=== PATIENT | female | born 1960 | race Caucasian/White ===

== ENCOUNTER → 2017-05-06 10:06 | Outpatient (CLI) | payer BC, SELFPAY ==
--- NOTE | 2017-05-06 10:25 | RAD_ITS ---
STUDY: X-RAY - PELVIS REASON FOR EXAM: Female, 56 years old. History of a inflammatory polyarthritis. TECHNIQUE: One view of the pelvis was obtained. COMPARISON: None. FINDINGS: There is a non-specific bowel gas pattern. There are multiple calcified phleboliths. Evidence of prior bilateral tubal ligation. There is a 1.2 cm calcification in the right mid abdomen. This may represent a lower pole calyceal calculus. Clinical correlation is recommended. Normal bilateral iliac wings, sacroiliac joints and visualized sacrum. Normal visualized bilateral superior and inferior pubic rami. Normal pubic symphysis. Normal ischial tuberosities. Normal visualized right femoral head. Normal right acetabulum. Normal right hip joint. Normal visualized left femoral head. Normal left acetabulum. Normal left hip joint. RAD/Pelvis 1 or 2 Views IMPRESSION: Normal x-ray examination of the pelvis. 1.2 cm calcification in the right midabdomen. Electronically Signed: Anup Jeffers MD at 11:01 EST Tel [phone], Service support ,
[2017-05-06 12:12] LABS: Absolute Lymphocyte Count 1.57 X10^3/ul (0.83-4.51); Basophil% 1.2 % (0-1); Eosinophil# 0.43 X10^3/uL; Eosinophils% 5.3 % (0-5); Hematocrit 39.5 % (37-47); Hemoglobin 13.2 g/dl (12.0-15.0); Lymphocyte # 1.57 X10^3/ul (4.0); Lymphocyte % 19.5 % (19-41); Mean Corp Hgb Conc 33.4 g/gl (32-36); Mean Corpuscular Hgb 34.7 pg (27.0-32.0); Mean Corpuscular Volume 103.9 fL (81-99); Mean Platelet Vol. 10.8 fl (6.2-12.0); Monocyte# 0.95 X10^3/uL; Monocyte% 11.8 % (0-10); Neutrophil # 4.98 X10^3/uL (2.7-7.7); Neutrophil % 61.8 % (47-70); Platelet Count 439 K/mm3 (150-450); RBC Distribution Width CV 13.1 % (11.6-14.6); RBC Distribution Width SD 48.9 fl (35.1-43.9); White Blood Count 8.1 K/mm3 (4.4-11.0)
[2017-05-06 12:13] LABS: POSITIVE COUNT NO; POSITIVE DIFFERENTIAL NO; POSITIVE MORPHOLOGY NO
[2017-05-06 12:14] LABS: Erythrocyte Sedimentation Rate 13 mm/hr (0-30)
[2017-05-06 12:20] LABS: ALB/GLOB Ratio 1.1 RATIO (0.9-2.4); AST(SGOT) 28 U/L (15-37); Alanine Aminotransfer ALT/SGPT 30 U/L (13-56); Albumin, Serum 4.3 g/dL (3.2-5.0); Alkaline Phosphatase 143 U/L (45-117); Anion Gap 13 (5-15); BUN 37 mg/dL (7-18); BUN/Creat Ratio 23.7 RATIO (10-20); CRP < 2.90 mg/L (0.0-3.0); Calcium,Total 10.2 mg/dL (8.5-10.1); Chloride 104 mmol/L (98-107); Creatinine, Serum 1.56 mg/dL (0.55-1.02); EST Glomerular Filtration Rate 36 mL/min (>60); Est Glom Filt Rate - Afr Amer 44 mL/min (>60); Glucose 89 mg/dL (70-110); Potassium 3.8 mmol/L (3.5-5.1); Protein, Total 8.3 g/dL (6.4-8.2); Rheumatoid Factor < 10.0 IU/mL (<15); Sodium Level 138 mmol/L (136-145); Uric Acid 2.3 mg/dL (2.6-6.0)
[2017-05-07 14:13] LABS: ANTINUCLEAR ANTIBODIES DIRECT Negative (Negative)
[2017-05-11 14:41] LABS: CCP IgG Antibodies 4 units (0-19); HEPATITIS B SURFACE AG Negative (Negative); HLA B27 Negative (.); Hep B Surface Antibodies Non Reactive (.); Hep C Antibodies <0.1 s/co ratio (0.0-0.9)
== END ==
PROVIDERS: Family Provider Family Medicine; PCP Family Medicine; Visit Provider Internal Medicine Rheumatology
DX: M06.4 Inflammatory polyarthropathy (principal); M79.7 Fibromyalgia; M10.9 Gout, unspecified; M19.071 Primary osteoarthritis, right ankle and foot; I10 Essential (primary) hypertension; E78.5 Hyperlipidemia, unspecified
CPT/HCPCS: 36415; 72170; 80053; 81374; 84550; 85025; 85652; 86038; 86140; 86200; 86431; 86706; 86803; 87340

== ENCOUNTER → 2017-07-01 08:40 | Outpatient (CLI) | payer BC, SELFPAY ==
[2017-07-01 09:14] LABS: Absolute Lymphocyte Count 2.14 X10^3/ul (0.83-4.51); Absolute Neutrophil Count 3.9 X10^3/uL (2.0-7.7); Basophil# 0.09 X10^3/uL; Basophil% 1.1 % (0-1); Eosinophils% 11.5 % (0-5); Hematocrit 40.7 % (37-47); Hemoglobin 13.4 g/dl (12.0-15.0); Lymphocyte # 2.14 X10^3/ul (4.0); Lymphocyte % 27.3 % (19-41); Mean Corp Hgb Conc 32.9 g/gl (32-36); Mean Corpuscular Hgb 34.3 pg (27.0-32.0); Mean Corpuscular Volume 104.1 fL (81-99); Monocyte# 0.76 X10^3/uL; Monocyte% 9.7 % (0-10); Neutrophil % 49.9 % (47-70); Platelet Count 399 K/mm3 (150-450); RBC Distribution Width CV 13.6 % (11.6-14.6); RBC Distribution Width SD 50.5 fl (35.1-43.9); Red Blood Count 3.91 M/mm3 (4.2-5.4); White Blood Count 7.8 K/mm3 (4.4-11.0)
[2017-07-01 09:16] LABS: POSITIVE COUNT NO; POSITIVE DIFFERENTIAL NO; POSITIVE MORPHOLOGY NO
[2017-07-01 09:47] LABS: ALB/GLOB Ratio 1.1 RATIO (0.9-2.4); AST(SGOT) 35 U/L (15-37); Alanine Aminotransfer ALT/SGPT 27 U/L (13-56); Albumin, Serum 4.1 g/dL (3.2-5.0); Alkaline Phosphatase 172 U/L (45-117); Anion Gap 11 (5-15); BUN 28 mg/dL (7-18); BUN/Creat Ratio 22.4 RATIO (10-20); Calcium,Total 10.2 mg/dL (8.5-10.1); Chloride 108 mmol/L (98-107); Creatinine, Serum 1.25 mg/dL (0.55-1.02); EST Glomerular Filtration Rate 47 mL/min (>60); Est Glom Filt Rate - Afr Amer 57 mL/min (>60); Globulin 3.9 g/dL (2.2-4.2); Glucose 84 mg/dL (74-106); Potassium 3.9 mmol/L (3.5-5.1); Sodium Level 139 mmol/L (136-145)
== END ==
PROVIDERS: Family Provider Family Medicine; PCP Family Medicine; Visit Provider Internal Medicine Rheumatology
DX: M06.4 Inflammatory polyarthropathy (principal); M79.7 Fibromyalgia; M19.071 Primary osteoarthritis, right ankle and foot; M10.9 Gout, unspecified; I10 Essential (primary) hypertension; E78.5 Hyperlipidemia, unspecified
CPT/HCPCS: 36415; 80053; 85025

== ENCOUNTER → 2017-09-11 08:02 | Outpatient (CLI) | payer BC, SELFPAY ==
--- NOTE | 2017-09-11 08:02 | DT_ITS ---
This patient was seen during an EMR downtime September 07, 2017 - September 14, 2017. This patient may have a combination of paper and electronic documentation or all paper documentation. All documentation is viewable within the e-chart portion of [email or web address] for each patient visit.
[2017-09-11 09:47] LABS: Eosinophils% 6.7 % (0-5); Hematocrit 38.5 % (37-47); Hemoglobin 13.3 g/dl (12.0-15.0); Lymphocyte % 16.5 % (19-41); Mean Corp Hgb Conc 34.5 g/gl (32-36); Mean Corpuscular Hgb 34.7 pg (27.0-32.0); Mean Corpuscular Volume 100.5 fL (81-99); Mean Platelet Vol. 10.2 fl (6.2-12.0); Monocyte% 12.1 % (0-10); Neutrophil % 63.1 % (47-70); POSITIVE COUNT NO; POSITIVE DIFFERENTIAL NO; POSITIVE MORPHOLOGY NO; Platelet Count 423 K/mm3 (150-450); RBC Distribution Width CV 12.6 % (11.6-14.6); RBC Distribution Width SD 45.3 fl (35.1-43.9); Red Blood Count 3.83 M/mm3 (4.2-5.4); White Blood Count 8.9 K/mm3 (4.4-11.0)
[2017-09-11 09:48] LABS: Absolute Lymphocyte Count 1.46 X10^3/ul (0.83-4.51); Absolute Neutrophil Count 5.6 X10^3/uL (2.0-7.7); Basophil# 0.09 X10^3/uL; Eosinophil# 0.59 X10^3/uL; Lymphocyte # 1.46 X10^3/ul (4.0); Monocyte# 1.07 X10^3/uL
[2017-09-11 14:52] LABS: AST(SGOT) 37 U/L (15-37); Alanine Aminotransfer ALT/SGPT 29 U/L (13-56); Albumin, Serum 4.2 g/dL (3.2-5.0); Alkaline Phosphatase 193 U/L (45-117); BUN 55 mg/dL (7-18); BUN/Creat Ratio 25.8 RATIO (10-20); Calcium,Total 11.9 mg/dL (8.5-10.1); Chloride 104 mmol/L (98-107); Creatinine, Serum 2.13 mg/dL (0.55-1.02); EST Glomerular Filtration Rate 25 mL/min (>60); Est Glom Filt Rate - Afr Amer 30 mL/min (>60); Globulin 4.4 g/dL (2.2-4.2); Glucose 98 mg/dL (74-106); Protein, Total 8.6 g/dL (6.4-8.2); Sodium Level 138 mmol/L (136-145)
[2017-09-11 14:53] LABS: Anion Gap 14 (5-15)
== END ==
PROVIDERS: Family Provider Family Medicine; PCP Family Medicine; Visit Provider Internal Medicine Rheumatology
DX: M06.4 Inflammatory polyarthropathy (principal); M19.071 Primary osteoarthritis, right ankle and foot; M79.7 Fibromyalgia; M10.9 Gout, unspecified; I10 Essential (primary) hypertension; E78.5 Hyperlipidemia, unspecified
CPT/HCPCS: 36415; 80053; 85025

== ENCOUNTER → 2017-10-02 06:50 | Outpatient (CLI) | payer BC, SELFPAY ==
[2017-10-02 07:30] LABS: ALB/GLOB Ratio 1.1 RATIO (0.9-2.4); AST(SGOT) 34 U/L (15-37); Alanine Aminotransfer ALT/SGPT 29 U/L (13-56); Alkaline Phosphatase 175 U/L (45-117); Anion Gap 11 (5-15); BUN 22 mg/dL (7-18); BUN/Creat Ratio 16.7 RATIO (10-20); Calcium,Total 8.9 mg/dL (8.5-10.1); Chloride 113 mmol/L (98-107); Creatinine, Serum 1.32 mg/dL (0.55-1.02); EST Glomerular Filtration Rate 44 mL/min (>60); Est Glom Filt Rate - Afr Amer 53 mL/min (>60); Globulin 3.8 g/dL (2.2-4.2); Glucose 90 mg/dL (74-106); Potassium 4.5 mmol/L (3.5-5.1); Protein, Total 7.8 g/dL (6.4-8.2); Sodium Level 143 mmol/L (136-145)
== END ==
PROVIDERS: Family Provider Family Medicine; PCP Family Medicine; Visit Provider Internal Medicine Rheumatology
DX: M06.4 Inflammatory polyarthropathy (principal); M79.7 Fibromyalgia; M19.071 Primary osteoarthritis, right ankle and foot; M10.9 Gout, unspecified; I10 Essential (primary) hypertension; E78.5 Hyperlipidemia, unspecified
CPT/HCPCS: 36415; 80053

== ENCOUNTER → 2018-01-01 06:43 | Outpatient (CLI) | payer BC, SELFPAY ==
[2018-01-01 07:24] LABS: Absolute Lymphocyte Count 1.37 X10^3/ul (0.83-4.51); Absolute Neutrophil Count 4.1 X10^3/uL (2.0-7.7); Basophil# 0.08 X10^3/uL; Basophil% 1.2 % (0-1); Eosinophil# 0.64 X10^3/uL; Eosinophils% 9.2 % (0-5); Hematocrit 39.7 % (37-47); Hemoglobin 13.6 g/dl (12.0-15.0); Lymphocyte # 1.37 X10^3/ul (4.0); Lymphocyte % 19.8 % (19-41); Mean Corp Hgb Conc 34.3 g/gl (32-36); Mean Corpuscular Hgb 34.8 pg (27.0-32.0); Mean Corpuscular Volume 101.5 fL (81-99); Mean Platelet Vol. 10.3 fl (6.2-12.0); Monocyte# 0.67 X10^3/uL; Monocyte% 9.7 % (0-10); Neutrophil # 4.12 X10^3/uL (2.7-7.7); Neutrophil % 59.4 % (47-70); Platelet Count 349 K/mm3 (150-450); RBC Distribution Width CV 13.5 % (11.6-14.6); RBC Distribution Width SD 48.4 fl (35.1-43.9); Red Blood Count 3.91 M/mm3 (4.2-5.4); White Blood Count 6.9 K/mm3 (4.4-11.0)
[2018-01-01 07:26] LABS: POSITIVE COUNT NO; POSITIVE DIFFERENTIAL NO; POSITIVE MORPHOLOGY NO
[2018-01-01 07:41] LABS: AST(SGOT) 25 U/L (15-37); Alanine Aminotransfer ALT/SGPT 19 U/L (13-56); Albumin, Serum 3.8 g/dL (3.2-5.0); Alkaline Phosphatase 166 U/L (45-117); Anion Gap 11 (5-15); BUN 18 mg/dL (7-18); BUN/Creat Ratio 16.4 RATIO (10-20); Calcium,Total 7.4 mg/dL (8.5-10.1); Chloride 111 mmol/L (98-107); EST Glomerular Filtration Rate 54 mL/min (>60); Est Glom Filt Rate - Afr Amer 66 mL/min (>60); Globulin 3.9 g/dL (2.2-4.2); Glucose 79 mg/dL (74-106); Potassium 3.5 mmol/L (3.5-5.1); Protein, Total 7.7 g/dL (6.4-8.2); Sodium Level 140 mmol/L (136-145)
== END ==
PROVIDERS: Family Provider Family Medicine; PCP Family Medicine; Referring Provider Internal Medicine Rheumatology; Visit Provider Internal Medicine Rheumatology
DX: M06.4 Inflammatory polyarthropathy (principal); M79.7 Fibromyalgia; M19.071 Primary osteoarthritis, right ankle and foot; M10.9 Gout, unspecified; I10 Essential (primary) hypertension; E78.5 Hyperlipidemia, unspecified
CPT/HCPCS: 36415; 80053; 85025

== ENCOUNTER → 2018-05-05 09:54 | Outpatient (CLI) | payer BC, SELFPAY ==
[2018-05-05 12:10] LABS: Absolute Lymphocyte Count 1.52 X10^3/ul (0.83-4.51); Absolute Neutrophil Count 3.7 X10^3/uL (2.0-7.7); Basophil# 0.07 X10^3/uL; Eosinophil# 0.71 X10^3/uL; Eosinophils% 10.5 % (0-5); Hemoglobin 13.3 g/dl (12.0-15.0); Lymphocyte # 1.52 X10^3/ul (4.0); Lymphocyte % 22.5 % (19-41); Mean Corp Hgb Conc 32.4 g/gl (32-36); Mean Corpuscular Hgb 35.6 pg (27.0-32.0); Mean Corpuscular Volume 109.6 fL (81-99); Mean Platelet Vol. 10.2 fl (6.2-12.0); Monocyte# 0.72 X10^3/uL; Monocyte% 10.7 % (0-10); Neutrophil % 54.9 % (47-70); Platelet Count 345 K/mm3 (150-450); Red Blood Count 3.74 M/mm3 (4.2-5.4); White Blood Count 6.8 K/mm3 (4.4-11.0)
[2018-05-05 12:15] LABS: POSITIVE COUNT NO; POSITIVE DIFFERENTIAL NO; POSITIVE MORPHOLOGY NO
[2018-05-05 12:24] LABS: ALB/GLOB Ratio 1.2 RATIO (0.9-2.4); AST(SGOT) 35 U/L (15-37); Alanine Aminotransfer ALT/SGPT 23 U/L (13-56); Albumin, Serum 3.8 g/dL (3.2-5.0); Alkaline Phosphatase 164 U/L (45-117); Anion Gap 11 (5-15); BUN 18 mg/dL (7-18); BUN/Creat Ratio 15.7 RATIO (10-20); Calcium,Total 8.9 mg/dL (8.5-10.1); Chloride 108 mmol/L (98-107); Cholesterol 175 mg/dL (200); Creatinine, Serum 1.15 mg/dL (0.55-1.02); EST Glomerular Filtration Rate 51 mL/min (>60); Est Glom Filt Rate - Afr Amer 62 mL/min (>60); Globulin 3.3 g/dL (2.2-4.2); Glucose 79 mg/dL (74-106); High Density Lipoprotein 91 mg/dL; Potassium 5.3 mmol/L (3.5-5.1); Protein, Total 7.1 g/dL (6.4-8.2); Sodium Level 143 mmol/L (136-145); Triglycerides 119 mg/dL; Very Low Density Lipoprotein 24 mg/dL (5-40)
== END ==
PROVIDERS: Family Provider Family Medicine; PCP Family Medicine; Visit Provider Family Medicine
DX: M06.4 Inflammatory polyarthropathy (principal); M79.7 Fibromyalgia; M19.071 Primary osteoarthritis, right ankle and foot; M10.9 Gout, unspecified; I10 Essential (primary) hypertension; E78.5 Hyperlipidemia, unspecified
CPT/HCPCS: 36415; 80053; 80061; 85025

== ENCOUNTER → 2018-11-09 14:05 | Outpatient (CLI) | payer BC, SELFPAY | PROVIDERS: Family Provider Family Medicine; PCP Family Medicine; Referring Provider Family Medicine; Visit Provider Family Medicine | DX: R19.7 Diarrhea, unspecified (principal) | CPT/HCPCS: 87493; 87506 ==

== ENCOUNTER → 2019-08-05 07:01 | Outpatient (CLI) | payer BC, SELFPAY ==
[2019-08-05 10:35] LABS: Anion Gap 9 (5-15); BUN 17 mg/dL (7-18); BUN/Creat Ratio 15.9 RATIO (10-20); Calcium,Total 9.2 mg/dL (8.5-10.1); Chloride 113 mmol/L (98-107); Cholesterol 211 mg/dL (200); Creatinine, Serum 1.07 mg/dL (0.55-1.02); EST Glomerular Filtration Rate 56 mL/min (>60); Est Glom Filt Rate - Afr Amer 67 mL/min (>60); Glucose 107 mg/dL (74-106); High Density Lipoprotein 76 mg/dL; Potassium 3.8 mmol/L (3.5-5.1); Sodium Level 140 mmol/L (136-145); Triglycerides 186 mg/dL; Very Low Density Lipoprotein 37 mg/dL (5-40)
== END ==
PROVIDERS: PCP Family Medicine; Referring Provider Family Medicine; Visit Provider Family Medicine
DX: I10 Essential (primary) hypertension (principal)
CPT/HCPCS: 36415; 80048; 80061

== ENCOUNTER → 2020-06-01 07:02 | Outpatient (CLI) | payer BC, SELFPAY ==
[2020-06-01 10:54] LABS: Anion Gap 10 (5-15); BUN 18 mg/dL (7-18); BUN/Creat Ratio 13.3 RATIO (10-20); Calcium,Total 10.4 mg/dL (8.5-10.1); Chloride 105 mmol/L (98-107); Cholesterol 204 mg/dL (200); Creatinine, Serum 1.35 mg/dL (0.55-1.02); EST Glomerular Filtration Rate 42 mL/min (>60); Est Glom Filt Rate - Afr Amer 51 mL/min (>60); Glucose 96 mg/dL (74-106); High Density Lipoprotein 95 mg/dL; Sodium Level 136 mmol/L (136-145); Triglycerides 103 mg/dL; Very Low Density Lipoprotein 21 mg/dL (5-40)
== END ==
PROVIDERS: PCP Family Medicine; Referring Provider Family Medicine; Visit Provider Family Medicine
DX: I10 Essential (primary) hypertension (principal)
CPT/HCPCS: 36415; 80048; 80061

== ENCOUNTER → 2020-10-24 14:16 | Outpatient (CLI) | payer BC, SELFPAY ==
[2020-10-24 15:23] LABS: Absolute Lymphocyte Count 1.84 X10^3/uL (0.83-4.51); Absolute Neutrophil Count 6.5 X10^3/uL (2.0-7.7); Basophil# 0.08 X10^3/uL; Basophil% 0.8 % (0-1); Eosinophil# 0.73 X10^3/uL; Eosinophils% 7.3 % (0-5); Erythrocyte Sedimentation Rate 26 mm/hr (0-30); Hematocrit 36.8 % (37-47); Hemoglobin 12.3 g/dL (12.0-15.0); Lymphocyte # 1.84 X10^3/ul (0.83-4.51); Lymphocyte % 18.4 % (19-41); Mean Corp Hgb Conc 33.4 g/dL (32-36); Mean Corpuscular Hgb 35.4 pg (27.0-32.0); Mean Corpuscular Volume 106.1 fL (81-99); Mean Platelet Vol. 9.7 fl (6.2-12.0); Monocyte# 0.78 X10^3/uL; Monocyte% 7.8 % (0-10); NRBC Flagged by Analyzer 0 % (0-5); Neutrophil # 6.52 X10^3/uL (2.7-7.7); Neutrophil % 65.1 % (47-70); Platelet Count 459 K/mm3 (150-450); RBC Distribution Width CV 13.6 % (11.6-14.6); RBC Distribution Width SD 52.2 fl (35.1-43.9); Red Blood Count 3.47 M/mm3 (4.2-5.4)
[2020-10-24 15:34] LABS: Vitamin B12 460 pg/mL (211-911)
[2020-10-24 16:20] LABS: Ferritin 217 ng/mL (8-252); Iron 117 ug/dL (50-170)
[2020-10-25 11:18] LABS: Iron Binding Capacity,Total 399 ug/dL (250-450)
== END ==
PROVIDERS: PCP Family Medicine; Referring Provider Internal Medicine Infectious Disease; Visit Provider Internal Medicine Infectious Disease
DX: K12.0 Recurrent oral aphthae (principal)
CPT/HCPCS: 36415; 82607; 82728; 82746; 83540; 83550; 85025; 85652

== ENCOUNTER → 2021-01-25 11:56 | Outpatient (CLI) | payer BC, SELFPAY ==
[2021-01-25 15:22] LABS: Anion Gap 14 (5-15); BUN 59 mg/dL (7-18); BUN/Creat Ratio 30.4 RATIO (10-20); Calcium,Total 8.8 mg/dL (8.5-10.1); Chloride 112 mmol/L (98-107); Creatinine, Serum 1.94 mg/dL (0.55-1.02); EST Glomerular Filtration Rate 28 mL/min (>60); Est Glom Filt Rate - Afr Amer 34 mL/min (>60); Glucose 96 mg/dL (74-106); Potassium 5.1 mmol/L (3.5-5.1); Sodium Level 141 mmol/L (136-145)
== END ==
PROVIDERS: PCP Family Medicine; Referring Provider Family Medicine; Visit Provider Family Medicine
DX: R42 Dizziness and giddiness (principal)
CPT/HCPCS: 36415; 80048

== ENCOUNTER → 2021-01-31 08:55 | Outpatient (CLI) | payer BC, SELFPAY ==
[2021-01-31 10:30] LABS: Anion Gap 9 (5-15); BUN 26 mg/dL (7-18); BUN/Creat Ratio 21.5 RATIO (10-20); Chloride 116 mmol/L (98-107); Creatinine, Serum 1.21 mg/dL (0.55-1.02); EST Glomerular Filtration Rate 48 mL/min (>60); Est Glom Filt Rate - Afr Amer 58 mL/min (>60); Glucose 90 mg/dL (74-106); Sodium Level 144 mmol/L (136-145)
== END ==
PROVIDERS: PCP Family Medicine; Referring Provider Family Medicine; Visit Provider Family Medicine
DX: I10 Essential (primary) hypertension (principal)
CPT/HCPCS: 36415; 80048

== ENCOUNTER 2021-04-01 08:45 | Inpatient (IN) | payer BC, MEDICARE, SELFPAY ==
[2021-04-01] VITALS (22 sets, daily range): BP systolic 78–113; BP diastolic 57–77; PULSE 99–119; RESP 14–18; TEMP 36.1–37.1; O2SAT 15–95; BMI 30.9; BMI 32.5
--- NOTE | 2021-04-01 09:36 | CT_ITS ---
EXAM: CT ANGIOGRAPHY CHEST WITHOUT AND WITH INTRAVENOUS CONTRAST CLINICAL INDICATION: pulmonary embolism hypoxia TECHNIQUE: Helically acquired angiography images were obtained of the chest without and with intravenous contrast. This CT exam was performed using one or more of the following dose reduction techniques: automated exposure control, adjustment of the mA and/or kV according to patient size, and/or use of iterative reconstruction technique. This report was created using [employer] report generation technology. MIP reconstructed images were created and reviewed. CONTRAST: IV 100mL Isovue-370 COMPARISON: None. FINDINGS: PULMONARY ARTERIES: Unremarkable. Normal in caliber. No evidence of pulmonary embolism. AORTA: Unremarkable. Normal in caliber. No evidence of dissection. GREAT VESSELS OF AORTIC ARCH: Unremarkable. Normal in caliber. No evidence of dissection. LUNGS AND PLEURAL SPACES: Multifocal infiltrates with features commonly reported with COVID pneumonia. No mass. No pleural effusion or thickening. HEART: Coronary artery atherosclerosis. Heart size is normal. No pericardial effusion. No signs of right heart strain. MEDIASTINUM: Unremarkable. No mediastinal or hilar adenopathy. Esophagus is unremarkable. No hiatal hernia. THYROID: Unremarkable. No thyroid lesions. BONES/JOINTS: Unremarkable. No suspicious lytic or blastic abnormality. ADRENALS: Mixed density mass of the left adrenal gland measuring 2.6 x 2.9 cm with macroscopic fat component and calcification, likely representing a myelolipoma. ACR White Paper guidelines (Shahzad et al. JACR 2017; 14(8):3386-3659) suggest no follow-up is necessary. CT/CTA Chest W/WO Contrast IMPRESSION: Multifocal infiltrates with features commonly reported with COVID pneumonia. No central or segmental pulmonary embolism. Electronically Signed: Aaron Martinez MD ([place]) at 11:12 EST , Service support ,
--- NOTE | 2021-04-01 09:36 | EKG12_ITS ---
Test Reason : SOB Blood Pressure : / mmHG Vent. Rate : 108 BPM Atrial Rate : 108 BPM P-R Int : 180 ms QRS Dur : 066 ms QT Int : 348 ms P-R-T Axes : 047 -09 015 degrees QTc Int : 466 ms Sinus tachycardia Low voltage QRS Borderline ECG Confirmed by SERENA SHIRLEY MD ([id number]), staff editor JIMENA BARTH ([id number]) on 04/04/2021 9:06:05 AM Referred By: Confirmed By:SERENA SHIRLEY MD
--- NOTE | 2021-04-01 09:38 | EDS_ITS ---
HPI History of Present Illness Chief Complaint: Weakness Informant: patient Narrative Narrative: 60-year-old female presenting to the emergency room with hypoxemia. States about 2 weeks ago she had a common cold with some rhinorrhea. Her then contracted COVID-19 and then last Thursday she developed a cough and fatigue. notes that they have been monitoring her oxygen saturations and has been doing okay. On Thursday she began to have some dips into the 80s but using her inhalers she was able to get her to come back up into the 90s. Unfortunately today she was in the 70s. Patient denies any chest pain. She feels globally weak. She is vaccinated including booster. She does note an underlying history of COPD. 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 [facility] Medical History (Updated 04/01/21 @ 12:[address] Keron Burgess, DO) GERD (gastroesophageal reflux disease) HLD (hyperlipidemia) Hypertension IBS (irritable bowel syndrome) Plantar fasciitis of left foot Medical History no medical history Home Medications loratadine 10 mg PO DAILY 09/21/13 [History Last Taken Unknown] omeprazole 20 mg PO DAILY 09/21/13 [History Last Taken 10/31/16 06:30] calcium citrate-vitamin D3 315 mg PO BID 10/24/16 [History Last Taken Unknown] cholecalciferol (vitamin D3) 500 mg PO DAILY 10/24/16 [History Last Taken Unknown] fluticasone furoate-vilanterol 1 ea IH DAILY 10/24/16 [History Last Taken 10/31/16 06:30] gemfibrozil 600 mg PO BIDAC 10/24/16 [History Last Taken Unknown] magnesium 400 mg PO DAILY 10/24/16 [History Last Taken Unknown] multivitamin 1 ea PO DAILY 10/24/16 [History Last Taken Unknown] zolpidem 10 mg PO QHS 10/24/16 [History Last Taken Unknown] albuterol mcg INHALATION 04/01/21 [History Last Taken Unknown] allopurinol 300 mg PO BID 04/01/21 [History Last Taken Unknown] lisinopril 20 mg PO DAILY 04/01/21 [History Last Taken Unknown] nortriptyline 50 mg PO.IVFORM QHS 04/01/21 [History Last Taken Unknown] rosuvastatin [Crestor] 5 mg PO DAILY 04/01/21 [History Last Taken Unknown] zolpidem [Ambien] 10 mg PO QHS PRN 04/01/21 [History Last Taken Unknown] Allergy/AdvReac Type Severity Reaction Status Date / Time levofloxacin [From Levaquin] AdvReac Diarrhea Verified 03/28/17 09:45 Social History (Updated 04/01/21 @ 09:[address] Keron Burgess, DO) Smoking Status: Former smoker substance use type: does not use ROS ROS ED ROS Narrative Generalized fatigue Constitutional Constitutional ED: Reports chills; Denies fever(s) or weight loss Eyes Eyes: Denies change in vision or diplopia ENT ENT ED: Reports rhinorrhea and sore throat; Denies ear pain Cardiovascular Cardiovascular: Denies chest pain, orthopnea, palpitations or racing heartbeat Respiratory/Chest Respiratory/Chest: Reports cough, dyspnea and dyspnea on exertion; Denies orthopnea Gastrointestinal Gastrointestinal: Denies abdominal pain, diarrhea, nausea or vomiting Genitourinary Genitourinary ED: Denies dysuria, hematuria or urinary frequency Musculoskeletal Musculoskeletal: Reports myalgias; Denies arthralgias Integumentary Denies abscess or rash Neurologic Neurologic: Reports headache(s); Denies weakness Psychiatric Psychiatric: Denies anxiety, depression, suicidal ideation or suicidal thoughts Endocrine Endocrinology: Denies polydipsia, polyphagia or polyuria Allergic/Immunologic Allergic/Immunologic ED: Denies mouth swelling, tongue swelling or urticaria EXAM Physical Exam Const Vital Signs: 04/01/21 08:46 04/01/21 09:16 04/01/21 09:41 Temperature 96.9 F L Temperature Source Temporal Pulse Rate 119 H 115 H Respiratory Rate 16 15 Respiratory Effort Respiratory Pattern Blood Pressure 90/65 Blood Pressure Mean 73 Pulse Ox 80 90 15 Oxygen Delivery Method Room Air High Flow Nasal Cannula Oxygen Flow Rate (L/min) 15 04/01/21 09:57 04/01/21 10:48 04/01/21 11:07 Temperature Temperature Source Pulse Rate Respiratory Rate Respiratory Effort Labored Respiratory Pattern Tachypnea Blood Pressure 85/63 L 113/59 L Blood Pressure Mean 70 77 Pulse Ox Oxygen Delivery Method Oxygen Flow Rate (L/min) 04/01/21 11:25 04/01/21 11:30 Temperature 98.7 F Temperature Source Oral Pulse Rate 101 H Respiratory Rate 14 Respiratory Effort Respiratory Pattern Blood Pressure 81/57 L 83/63 L Blood Pressure Mean 65 69 Pulse Ox 94 Oxygen Delivery Method Airvo Oxygen Flow Rate (L/min) Positive well nourished and well developed General Appearance ED: well developed HEENT Reports normocephalic, head/scalp atraumatic, TM's clear and moist mucous membranes HEENT Narrative: Mild turbinate edema Negative for trauma Tympanic Membrane ED: Yes TM's clear Eyes PERRL and EOMs intact bilaterally Neck no lymphadenopathy, supple and no JVD Resp normal respiratory effort and clear to auscultation bilaterally Cardio regular rate and no murmurs Rate: tachycardic GI normal to inspection, nondistended, normoactive bowel sounds and non-tender Palpation: soft Back/Spine no CVA tenderness and normal ROM Extremity normal to inspection General Extremety ED: Negative for edema General Extremity: Negative for edema Neuro oriented x3 and CN's II-XII intact bilaterally Sensorium / Orientation: alert Motor Exam: strength 5/5 throughout Psych mental status grossly normal Mood & Affect: Negative for depressed or tearful Skin no rashes or lesions noted and no wounds MDM MDM MDM Narrative Medical decision making narrative: Patient CTA of the chest does not demonstrate any pulmonary embolism but does demonstrate areas of pneumonitis consistent with her COVID-19 diagnosis. CRP significantly elevated to 56 fibrinogen greater than 900 D-dimer 0.89. Lactic acid is normal at 1. Creatinine 1.37. The patient's blood pressure has been labile. All means greater than 65 some down into the 80s and then some more normotensive. Start with a 500 cc fluid bolus and advance slowly. Blood pressures are improving with the fluid bolus. She appears to be perfusing well and her lactic acid is normal. I will give her a dose of Decadron. Lab Data Attestation: I reviewed the patient's lab results. Labs: Laboratory Results - last 24 hr 04/01/21 04/01/21 04/01/21 09:25 09:25 09:25 WBC 8.1 RBC 3.53 L Hgb 12.4 Hct 35.8 L MCV 101.4 H MCH 35.1 H MCHC 34.6 RDW Std Deviation 49.2 H RDW Coeff of James 13.3 Plt Count 415 MPV 9.6 Immature Gran % (Auto) 1.000 H Neut % (Auto) 75.9 H Lymph % (Auto) 10.6 L [place] % (Auto) 11.6 H Eos % (Auto) 0.2 Baso % (Auto) 0.7 Absolute Neuts (auto) 6.1 Absolute Lymphs (auto) 0.86 Nucleated RBC % 0 Fibrinogen > 900 H D-Dimer Quant (PE/DVT) 0.89 H* Sodium 131 L Potassium 3.9 Chloride 103 Carbon Dioxide 13.0 L Anion Gap 15 BUN 21 H Creatinine 1.37 H Estim Creat Clear Calc 37.24 Est GFR (MDRD) Af Amer 50 L Est GFR (MDRD) Non-Af 42 L BUN/Creatinine Ratio 15.3 Glucose 105 Lactic Acid Calcium 8.9 Total Bilirubin 0.30 AST 46 H ALT 33 Alkaline Phosphatase 167 H Lactate Dehydrogenase 216 Total Creatine Kinase 45 Troponin I High Sens 8 C-React Prot Ext Range 256.00 H B-Natriuretic Peptide Total Protein 7.8 Albumin 2.8 L Globulin 5.0 H Albumin/Globulin Ratio 0.6 L Procalcitonin 04/01/21 04/01/21 04/01/21 09:25 09:25 09:25 WBC RBC Hgb Hct MCV MCH MCHC RDW Std Deviation RDW Coeff of James Plt Count MPV Immature Gran % (Auto) Neut % (Auto) Lymph % (Auto) [place] % (Auto) Eos % (Auto) Baso % (Auto) Absolute Neuts (auto) Absolute Lymphs (auto) Nucleated RBC % Fibrinogen D-Dimer Quant (PE/DVT) Sodium Potassium Chloride Carbon Dioxide Anion Gap BUN Creatinine Estim Creat Clear Calc Est GFR (MDRD) Af Amer Est GFR (MDRD) Non-Af BUN/Creatinine Ratio Glucose Lactic Acid 1.0 Calcium Total Bilirubin AST ALT Alkaline Phosphatase Lactate Dehydrogenase Total Creatine Kinase Troponin I High Sens C-React Prot Ext Range B-Natriuretic Peptide 36.3 Total Protein Albumin Globulin Albumin/Globulin Ratio Procalcitonin 0.71 H Radiography Diagnostic Testing: Clinical Impression(s) from Imaging Studies Chest CTA 04/01/21 09:36 IMPRESSION: Multifocal infiltrates with features commonly reported with COVID pneumonia. No central or segmental pulmonary embolism. Electronically Signed: Aaron Martinez MD ([place]) at 11:12 EST , Service support , EKG Initial EKG: Attestation: I personally reviewed and interpreted this EKG as follows: Comments: Sinus tachycardia with a ventricular rate of 108 bpm Discharge Plan Dx/Rx/DC Orders Clinical Impression: COVID-19, Acute hypoxemic respiratory failure due to COVID-19, Acute hypotension Disposition Disposition: Acute Care [facility]
[2021-04-01 10:06] LABS: Absolute Lymphocyte Count 0.86 X10^3/uL (0.83-4.51); Absolute Neutrophil Count 6.1 X10^3/uL (2.0-7.7); Basophil# 0.06 X10^3/uL; Basophil% 0.7 % (0-1); Eosinophil# 0.02 X10^3/uL; Eosinophils% 0.2 % (0-5); Hematocrit 35.8 % (37-47); Hemoglobin 12.4 g/dL (12.0-15.0); Lymphocyte # 0.86 X10^3/ul (0.83-4.51); Lymphocyte % 10.6 % (19-41); Mean Corp Hgb Conc 34.6 g/dL (32-36); Mean Corpuscular Hgb 35.1 pg (27.0-32.0); Mean Corpuscular Volume 101.4 fL (81-99); Mean Platelet Vol. 9.6 fl (6.2-12.0); Monocyte# 0.94 X10^3/uL; Monocyte% 11.6 % (0-10); NRBC Flagged by Analyzer 0 % (0-5); Neutrophil # 6.14 X10^3/uL (2.7-7.7); Neutrophil % 75.9 % (47-70); Platelet Count 415 K/mm3 (150-450); RBC Distribution Width CV 13.3 % (11.6-14.6); RBC Distribution Width SD 49.2 fl (35.1-43.9); Red Blood Count 3.53 M/mm3 (4.2-5.4); White Blood Count 8.1 K/mm3 (4.4-11.0)
[2021-04-01 10:10] LABS: Procalcitonin 0.71 ng/mL (0.00-0.09)
[2021-04-01 10:14] LABS: Fibrinogen > 900 mg/dl (203-444)
[2021-04-01 10:17] LABS: ALB/GLOB Ratio 0.6 RATIO (0.9-2.4); AST(SGOT) 46 U/L (15-37); Alanine Aminotransfer ALT/SGPT 33 U/L (13-56); Albumin, Serum 2.8 g/dL (3.2-5.0); Alkaline Phosphatase 167 U/L (45-117); Anion Gap 15 (5-15); BUN 21 mg/dL (7-18); BUN/Creat Ratio 15.3 RATIO (10-20); CPK Total, Creatine Kinase 45 U/L (26-192); Calcium,Total 8.9 mg/dL (8.5-10.1); Chloride 103 mmol/L (98-107); Creatinine, Serum 1.37 mg/dL (0.55-1.02); EST Glomerular Filtration Rate 42 mL/min (>60); Est Glom Filt Rate - Afr Amer 50 mL/min (>60); Estimated Creatinine Clearance 37.24 ml/min; Glucose 105 mg/dL (74-106); LDH 216 U/L (84-246); Potassium 3.9 mmol/L (3.5-5.1); Protein, Total 7.8 g/dL (6.4-8.2); Sodium Level 131 mmol/L (136-145); Troponin-I HS 8 pg/mL (3.0-54.0)
[2021-04-01 10:30] LABS: D-Dimer Quantitative (DVT/PE) 0.89 FEU/ug/m (0.27-0.49)
[2021-04-01 10:43] LABS: BNP,B-Type NATRIURETIC PEPTIDE 36.3 pg/mL (0-100)
[2021-04-01] MEDS: 0.9% Normal Saline 1,000 ML 999 ML IV ×2 (11:23→23:45)
--- NOTE | 2021-04-01 11:25 | PCM.HP.STD ---
HPI - General General Date of Admission: 04/01/21 HPI Narrative VAMSI MARCUS, is a 60 F with an extensive PMH as outlined who was admitted via the ED on with a complain of shortness of breath. Patient started having some cold like symptoms 2 weeks ago, and had associated rhinorrhea. She was subsequently exposed to covid 19 as her tested positive. She had been at home, supposedly doing well with her oxyen saturations which they had been monitoring. However, her shortness of breath worsened so she was brought in to the ED today. She has receied the vaccines and also the booster. VItals in the ED were IN of 101F, IN of 98.7F, RR of 14 and Pulse ox of 94% on Airvo a 45L of oxygen. CBC showed hemoglobin of 12.4 with platelets of 415 and WBC of 8.1. Chemistry was remarkable for sodium of 131 and creatinine of 1.37. CRP was elevated at 256 and fibrinogen was also elevated. CT of the chest was negative for PE; D-dimer was elevated. She is being admitted to be managed for acute hypoxic respiratory failure due to covid 19 pneumonia. [facility] Medical History GERD (gastroesophageal reflux disease) HLD (hyperlipidemia) Hypertension IBS (irritable bowel syndrome) Plantar fasciitis of left foot Medical History no medical history Home Medications loratadine 10 mg PO DAILY 09/21/13 [History Last Taken Unknown] omeprazole 20 mg PO DAILY 09/21/13 [History Last Taken 10/31/16 06:30] calcium citrate-vitamin D3 315 mg PO BID 10/24/16 [History Last Taken Unknown] cholecalciferol (vitamin D3) 500 mg PO DAILY 10/24/16 [History Last Taken Unknown] fluticasone furoate-vilanterol 1 ea IH DAILY 10/24/16 [History Last Taken 10/31/16 06:30] gemfibrozil 600 mg PO BIDAC 10/24/16 [History Last Taken Unknown] magnesium 400 mg PO DAILY 10/24/16 [History Last Taken Unknown] multivitamin 1 ea PO DAILY 10/24/16 [History Last Taken Unknown] zolpidem 10 mg PO QHS 10/24/16 [History Last Taken Unknown] albuterol mcg INHALATION 04/01/21 [History Last Taken Unknown] allopurinol 300 mg PO BID 04/01/21 [History Last Taken Unknown] lisinopril 20 mg PO DAILY 04/01/21 [History Last Taken Unknown] nortriptyline 50 mg PO.IVFORM QHS 04/01/21 [History Last Taken Unknown] rosuvastatin [Crestor] 5 mg PO DAILY 04/01/21 [History Last Taken Unknown] zolpidem [Ambien] 10 mg PO QHS PRN 04/01/21 [History Last Taken Unknown] Allergy/AdvReac Type Severity Reaction Status Date / Time [facility] [[facility]] AdvReac Diarrhea Verified 03/28/17 09:45 Social History (Updated 04/01/21 @ 09:[address] Keron Burgess, DO) Smoking Status: Former smoker substance use type: does not use ROS Constitutional Constitutional: Reports fatigue, malaise and weakness; Denies anorexia, change in weight, chills or fever(s) Eyes Eyes: Denies change in vision ENT HEENT: Denies ear pain or headache(s) Cardiovascular Cardiovascular: Reports dyspnea on exertion and orthopnea; Denies chest pain, edema, lightheadedness, palpitations, paroxysmal nocturnal dyspnea, rapid heart rate or syncope Respiratory/Chest Respiratory/Chest: Reports cough, dyspnea, hemoptysis, productive cough, shortness of breath at rest and shortness of breath with exertion; Denies excessive phlegm production or wheezing Gastrointestinal Gastrointestinal: Denies abdominal pain, constipation, diarrhea, nausea or vomiting Genitourinary Genitourinary: Denies burning urination, dysuria, hematuria or urinary frequency Musculoskeletal Musculoskeletal: Denies arthralgias, back pain, joint pain or joint swelling Neurologic Neurologic: Denies confusion, dizziness or focal weakness Psychiatric Psychiatric: Denies anxiety or depression Vital Signs Vital Signs Vital Signs: 04/01/21 08:46 04/01/21 09:16 04/01/21 09:41 Temperature 96.9 F L Temperature Source Temporal Pulse Rate 119 H 115 H Respiratory Rate 16 15 Respiratory Effort Respiratory Pattern Blood Pressure 90/65 Blood Pressure Mean 73 Pulse Ox 80 90 15 Oxygen Delivery Method Room Air High Flow Nasal Cannula Oxygen Flow Rate (L/min) 15 04/01/21 09:57 04/01/21 10:48 04/01/21 11:07 Temperature Temperature Source Pulse Rate Respiratory Rate Respiratory Effort Labored Respiratory Pattern Tachypnea Blood Pressure 85/63 L 113/59 L Blood Pressure Mean 70 77 Pulse Ox Oxygen Delivery Method Oxygen Flow Rate (L/min) Weight Weight: 180 lb Body Mass Index (BMI) 30.9 Physical Exam Const alert and oriented x3 General Appearance: cooperative Orientation / Consciousness: lethargic HEENT normocephalic, head/scalp atraumatic, hearing grossly normal bilaterally and moist oral mucous membranes Eyes PERRL, EOMs intact bilaterally and conjunctivae normal Neck no lymphadenopathy Resp Resp Narrative: diminished breath sounds bibasally, no wheezes, no crackles. on Airvo at 45L Cardio regular rate, regular rhythm, S1 normal heart sound, S2 normal heart sound and no murmurs GI normal to inspection, nondistended, normoactive bowel sounds, soft to palpation, non-tender and non-distended Extremity normal to inspection, full ROM and no clubbing, cyanosis or edema Peripheral Pulses: Yes pulses 2+ throughout Skin no rashes or lesions noted Neuro oriented x3, CN's II-XII intact bilaterally and moves all extremities Sensorium / Orientation: awake and alert Psych affect normal Results Lab / Micro Data Result Diagrams: 04/01/21 09:25 04/01/21 09:25 Labs: Laboratory Results - last 24 hr 04/01/21 09:25: WBC 8.1, RBC 3.53 L, Hgb 12.4, Hct 35.8 L, MCV 101.4 H, MCH 35.1 H, MCHC 34.6, RDW Std Deviation 49.2 H, RDW Coeff of James 13.3, Plt Count 415, MPV 9.6, Immature Gran % (Auto) 1.000 H, Neut % (Auto) 75.9 H, Lymph % (Auto) 10.6 L, [place] % (Auto) 11.6 H, Eos % (Auto) 0.2, Baso % (Auto) 0.7, Absolute Neuts (auto) 6.1, Absolute Lymphs (auto) 0.86, Nucleated RBC % 0 04/01/21 09:25: Fibrinogen > 900 H, D-Dimer Quant (PE/DVT) 0.89 H* 04/01/21 09:25: Sodium 131 L, Potassium 3.9, Chloride 103, Carbon Dioxide 13.0 L, Anion Gap 15, BUN 21 H, Creatinine 1.37 H, Estim Creat Clear Calc 37.24, Est GFR (MDRD) Af Amer 50 L, Est GFR (MDRD) Non-Af 42 L, BUN/Creatinine Ratio 15.3, Glucose 105, Calcium 8.9, Total Bilirubin 0.30, AST 46 H, ALT 33, Alkaline Phosphatase 167 H, Lactate Dehydrogenase 216, Total Creatine Kinase 45, Troponin I High Sens 8, C-React Prot Ext Range 256.00 H, Total Protein 7.8, Albumin 2.8 L, Globulin 5.0 H, Albumin/Globulin Ratio 0.6 L 04/01/21 09:25: Lactic Acid 1.0 04/01/21 09:25: B-Natriuretic Peptide 36.3 04/01/21 09:25: Procalcitonin 0.71 H Micro: Microbiology 04/01/21 09:15 Nasal Secretion SARS-CoV-2 Antigen (Rapid) - Final SARS-CoV-2 (COVID 19) Radiology Impression Chest CTA 04/01/21 09:36 IMPRESSION: Multifocal infiltrates with features commonly reported with COVID pneumonia. No central or segmental pulmonary embolism. Electronically Signed: Aaron Martinez MD ([place]) at 11:12 EST , Service support , Assessment & Plan Assessment/Plan (1) COVID-19: (2) Acute hypoxemic respiratory failure due to COVID-19: PLAN: #Acute hypoxic respiratory failure due to COVID 19 pneumonia admit to PCU. start on decadron 6mg daily. On Airvo 45L titrate oxygen to maintain sats >90% breathing treatment with bronchodilators consult ID to see if patient qualifies for baricitinib; start remdesivir. consult pulmonology. Fibrinogen elevated. #Hypertension: On lisinopril #CKD stage IIIb: Creatinine is 1.37 with a baseline of around 1.1-1.3. Will monitor. #Elevated D-dimer: D-dimer was 0.89. CTA negative for PE. Likely due to Covid. #Hyperlipidemia: on statin DVT prophylaxis: lovenox 40mg bid Code status: full code Patient and counseled extensively about different types of CODE STATUS including full code, DNR CCA and DNR CCA. Patient elects to be full code. Total [id number] time 17 minutes. Charges/Coding Visit Charges Inpatient E&M: 75735 Init Hosp L3 Procedures Hospitalists Procedures: 56157 Advncd Care Plan 30 Min
[2021-04-01] MEDS: dexAMETHasone 4 MG/ML Vial 6 MG IV (11:27)
--- NOTE | 2021-04-01 13:36 | CON.PCM.CC_ITS ---
Assessment & Plan Assessment/Plan (1) Acute hypoxemic respiratory failure due to COVID-19: PLAN: RECOMMENDATIONS: 1. Wean FiO2 to maintain oxygen saturations at or above 90%. 2. Continue remdesivir to complete treatment course. 3. Continue Decadron to complete 10 days of therapy. 4. Continue baricitinib per ID recommendations. 5. Diuretics, as needed, to maintain euvolemic state. 6. Continue prophylactic Lovenox twice daily. 7. Awake prone positioning was encouraged. IMPRESSIONS: 1. Acute hypoxemic respiratory failure secondary to COVID-19 pneumonia The patient was initially admitted to the hospital on April 01 with worsening dyspnea. The patient is vaccinated against coronavirus. She was subsequently started on Decadron, remdesivir and baricitinib, in light of her oxygenation status and need for heated high flow. Plan to wean FiO2 for saturations greater than 90%. CTA chest was negative for PE. Therefore, prophylactic Lovenox will be continued. Diuretics can be utilized as needed to maintain euvolemic state. Encourage incentive spirometer use and mobilize patient as tolerated. 2. Obesity/hypertension/chronic kidney disease/hyperlipidemia Complicates care, management, recovery and prognosis. Continue home medications as indicated. This note was generated with [employer] dictation software. It may contain incorrect words, spelling, and punctuation that were not noted in checking the note before signing. HPI Consult Data Date of Consult: 04/02/21 HPI Narrative Reason for Consultation: Acute hypoxemic respiratory failure secondary to COVID- 19 pneumonia HPI Narrative: The patient is a 60-year-old female, with a history as outlined below, who presented to the emergency department on April 01 with shortness of breath, nasal congestion and rhinorrhea. Symptoms have been present now for approximately 2 weeks. Her recently tested positive for COVID-19. On presentation to the emergency department, the patient was noted to be afebrile and hemodynamically stable. D-dimer was mildly elevated at 0.89. Chemistry profile was notable for a sodium of 131, bicarbonate of 13 and creatinine of 1.37. CRP was elevated at 256. Coronavirus rapid antigen testing was positive. CTA chest showed no evidence for PE but did demonstrate bilateral groundglass changes. The patient was subsequently started on remdesivir, Decadron, baricitinib and Lovenox. She was subsequently admitted to the id ogressive care unit for further management. [facility] Medical History GERD (gastroesophageal reflux disease) HLD (hyperlipidemia) Hypertension IBS (irritable bowel syndrome) Plantar fasciitis of left foot Medical History no medical history Home Medications loratadine 10 mg PO DAILY 09/21/13 [History Last Taken Unknown] omeprazole 20 mg PO DAILY 09/21/13 [History Last Taken 10/31/16 06:30] calcium citrate-vitamin D3 315 mg PO BID 10/24/16 [History Last Taken Unknown] cholecalciferol (vitamin D3) 500 mg PO DAILY 10/24/16 [History Last Taken Unknown] fluticasone furoate-vilanterol 1 ea IH DAILY 10/24/16 [History Last Taken 10/31/16 06:30] gemfibrozil 600 mg PO BIDAC 10/24/16 [History Last Taken Unknown] magnesium 400 mg PO DAILY 10/24/16 [History Last Taken Unknown] multivitamin 1 ea PO DAILY 10/24/16 [History Last Taken Unknown] zolpidem 10 mg PO QHS 10/24/16 [History Last Taken Unknown] albuterol mcg INHALATION 04/01/21 [History Last Taken Unknown] allopurinol 300 mg PO BID 04/01/21 [History Last Taken Unknown] lisinopril 20 mg PO DAILY 04/01/21 [History Last Taken Unknown] nortriptyline 50 mg PO.IVFORM QHS 04/01/21 [History Last Taken Unknown] rosuvastatin [Crestor] 5 mg PO DAILY 04/01/21 [History Last Taken Unknown] zolpidem [Ambien] 10 mg PO QHS PRN 04/01/21 [History Last Taken Unknown] Allergy/AdvReac Type Severity Reaction Status Date / Time levofloxacin [From Levaquin] AdvReac Diarrhea Verified 03/28/17 09:45 Social History (Updated 04/01/21 @ 09:[address] Keron Burgess DO) Smoking Status: Former smoker substance use type: does not use ROS Constitutional Constitutional: Reports chills and fatigue Eyes Eyes: Denies blurry vision or change in vision ENT HEENT: Reports nasal congestion and nasal discharge; Denies dizziness, dysphagia or epistaxis Cardiovascular Cardiovascular: Reports dyspnea; Denies chest pain or dizziness Respiratory/Chest Respiratory/Chest: Reports cough and dyspnea Gastrointestinal Gastrointestinal: Denies abdominal pain, diarrhea or vomiting Genitourinary Genitourinary: Denies difficulty urinating Musculoskeletal Musculoskeletal: Denies arthralgias, back pain or joint pain Integumentary Integumentary: Denies lesions Neurologic Neurologic: Denies abnormal gait or abnormal speech Psychiatric Psychiatric: Denies anxiety or depression Endocrine Endocrinology: Reports fatigue Hematologic/Lymphatic Hematologic/Lymphatic: Denies easy bleeding or easy bruising Physical Exam Const alert, oriented x3 and no apparent distress Nutritional Appearance: obese HEENT normocephalic, head/scalp atraumatic and moist oral mucous membranes Eyes PERRL, EOMs intact bilaterally and conjunctivae normal Neck supple General: trachea midline Chest inspection of chest normal Resp Auscultation: diminished lung sounds; Negative for rales, rhonchi or wheezes Cardio regular rate and regular rhythm GI normal to inspection, nondistended, normoactive bowel sounds Extremity no clubbing, cyanosis or edema Skin no rashes or lesions noted Neuro CN's II-XII intact bilaterally, moves all extremities and no focal motor deficits Psych cooperative and affect normal Lab / Micro Data Result Diagrams: 04/02/21 06:07 04/02/21 06:07 Labs: Laboratory Results - last 24 hr 04/01/21 09:25: WBC 8.1, RBC 3.53 L, Hgb 12.4, Hct 35.8 L, MCV 101.4 H, MCH 35.1 H, MCHC 34.6, RDW Std Deviation 49.2 H, RDW Coeff of James 13.3, Plt Count 415, MPV 9.6, Immature Gran % (Auto) 1.000 H, Neut % (Auto) 75.9 H, Lymph % (Auto) 10.6 L, [place] % (Auto) 11.6 H, Eos % (Auto) 0.2, Baso % (Auto) 0.7, Absolute Neuts (auto) 6.1, Absolute Lymphs (auto) 0.86, Nucleated RBC % 0 04/01/21 09:25: Fibrinogen > 900 H, D-Dimer Quant (PE/DVT) 0.89 H* 04/01/21 09:25: Sodium 131 L, Potassium 3.9, Chloride 103, Carbon Dioxide 13.0 L , Anion Gap 15, BUN 21 H, Creatinine 1.37 H, Estim Creat Clear Calc 37.24, Est GFR (MDRD) Af Amer 50 L, Est GFR (MDRD) Non-Af 42 L, BUN/Creatinine Ratio 15.3, Glucose 105, Calcium 8.9, Total Bilirubin 0.30, AST 46 H, ALT 33, Alkaline Phosphatase 167 H, Lactate Dehydrogenase 216, Total Creatine Kinase 45, Troponin I High Sens 8, C-React Prot Ext Range 256.00 H, Total Protein 7.8, Albumin 2.8 L , Globulin 5.0 H, Albumin/Globulin Ratio 0.6 L 04/01/21 09:25: Lactic Acid 1.0 04/01/21 09:25: B-Natriuretic Peptide 36.3 04/01/21 09:25: Procalcitonin 0.71 H Micro: Microbiology 04/01/21 09:15 Nasal Secretion SARS-CoV-2 Antigen (Rapid) - Final SARS-CoV-2 (COVID 19) Radiology Impression Chest CTA 04/01/21 09:36 IMPRESSION: Multifocal infiltrates with features commonly reported with COVID pneumonia. No central or segmental pulmonary embolism. Electronically Signed: Aaron Martinez MD ([place]) at 11:12 EST , Service support , Charges/Coding Visit Charges Inpatient E&M: 03035 Init Hosp L3
--- NOTE | 2021-04-01 15:10 | PCM.CONS.GEN ---
Assessment & Plan Assessment/Plan (1) COVID-19: PLAN: Sx started 03/25. Isolate for 20 days. Vaccinated and boosted. On dex, will start remdesivir. Reviewed EUA and risks/benefits, we agree to start baricitinib. Will follow, thank you (2) Acute hypoxemic respiratory failure due to COVID-19: HPI Consult Data Date of Consult: 04/01/21 HPI Narrative HPI Narrative: VAMSI MARCUS, is a 60 F who presented with recent URI about 2 weeks ago, then was exposed to her with covid, and on 03/25 symptoms changed. Developed fever, chills, headache, aches, change in taste/smell. She is vaccinated x3. is recovering, nearly back to work. She noticed worsening hypoxia, came to ED, admitted on dex. Full ROS performed and neg except as noted above. [facility] Medical History GERD (gastroesophageal reflux disease) HLD (hyperlipidemia) Hypertension IBS (irritable bowel syndrome) Plantar fasciitis of left foot Medical History no medical history Home Medications loratadine 10 mg PO DAILY 09/21/13 [History Last Taken Unknown] omeprazole 20 mg PO DAILY 09/21/13 [History Last Taken 10/31/16 06:30] calcium citrate-vitamin D3 315 mg PO BID 10/24/16 [History Last Taken Unknown] cholecalciferol (vitamin D3) 500 mg PO DAILY 10/24/16 [History Last Taken Unknown] fluticasone furoate-vilanterol 1 ea IH DAILY 10/24/16 [History Last Taken 10/31/16 06:30] gemfibrozil 600 mg PO BIDAC 10/24/16 [History Last Taken Unknown] magnesium 400 mg PO DAILY 10/24/16 [History Last Taken Unknown] multivitamin 1 ea PO DAILY 10/24/16 [History Last Taken Unknown] zolpidem 10 mg PO QHS 10/24/16 [History Last Taken Unknown] albuterol mcg INHALATION 04/01/21 [History Last Taken Unknown] allopurinol 300 mg PO BID 04/01/21 [History Last Taken Unknown] lisinopril 20 mg PO DAILY 04/01/21 [History Last Taken Unknown] nortriptyline 50 mg PO.IVFORM QHS 04/01/21 [History Last Taken Unknown] rosuvastatin [Crestor] 5 mg PO DAILY 04/01/21 [History Last Taken Unknown] zolpidem [Ambien] 10 mg PO QHS PRN 04/01/21 [History Last Taken Unknown] Allergy/AdvReac Type Severity Reaction Status Date / Time levofloxacin [From Levaquin] AdvReac Diarrhea Verified 03/28/17 09:45 Social History (Updated 04/01/21 @ 09:[address] Keron Burgess, DO) Smoking Status: Former smoker substance use type: does not use Physical Exam Const alert, oriented x3 and no apparent distress General Appearance: cooperative Exam Limitations: no limitations HEENT normocephalic and head/scalp atraumatic Eyes PERRL and EOMs intact bilaterally Neck supple Resp Auscultation: diminished lung sounds Cardio regular rate and regular rhythm GI soft to palpation, non-tender and non-distended Extremity no clubbing, cyanosis or edema Skin no rashes or lesions noted Neuro CN's II-XII intact bilaterally Lab / Micro Data Result Diagrams: 04/01/21 09:25 04/01/21 09:25 Labs: Laboratory Results - last 24 hr 04/01/21 09:25: WBC 8.1, RBC 3.53 L, Hgb 12.4, Hct 35.8 L, MCV 101.4 H, MCH 35.1 H, MCHC 34.6, RDW Std Deviation 49.2 H, RDW Coeff of James 13.3, Plt Count 415, MPV 9.6, Immature Gran % (Auto) 1.000 H, Neut % (Auto) 75.9 H, Lymph % (Auto) 10.6 L, [place] % (Auto) 11.6 H, Eos % (Auto) 0.2, Baso % (Auto) 0.7, Absolute Neuts (auto) 6.1, Absolute Lymphs (auto) 0.86, Nucleated RBC % 0 04/01/21 09:25: Fibrinogen > 900 H, D-Dimer Quant (PE/DVT) 0.89 H* 04/01/21 09:25: Sodium 131 L, Potassium 3.9, Chloride 103, Carbon Dioxide 13.0 L, Anion Gap 15, BUN 21 H, Creatinine 1.37 H, Estim Creat Clear Calc 37.24, Est GFR (MDRD) Af Amer 50 L, Est GFR (MDRD) Non-Af 42 L, BUN/Creatinine Ratio 15.3, Glucose 105, Calcium 8.9, Total Bilirubin 0.30, AST 46 H, ALT 33, Alkaline Phosphatase 167 H, Lactate Dehydrogenase 216, Total Creatine Kinase 45, Troponin I High Sens 8, C-React Prot Ext Range 256.00 H, Total Protein 7.8, Albumin 2.8 L, Globulin 5.0 H, Albumin/Globulin Ratio 0.6 L 04/01/21 09:25: Lactic Acid 1.0 04/01/21 09:25: B-Natriuretic Peptide 36.3 04/01/21 09:25: Procalcitonin 0.71 H Micro: Microbiology 04/01/21 09:15 Nasal Secretion SARS-CoV-2 Antigen (Rapid) - Final SARS-CoV-2 (COVID 19) Radiology Impression Chest CTA 04/01/21 09:36 IMPRESSION: Multifocal infiltrates with features commonly reported with COVID pneumonia. No central or segmental pulmonary embolism. Electronically Signed: Aaron Martinez MD ([place]) at 11:12 EST , Service support ,
[2021-04-01] MEDS: Gemfibrozil 600 MG Tablet PO (16:40)
[2021-04-01] MEDS: Atorvastatin Calcium 10 MG Tablet PO (23:04)
[2021-04-01] MEDS: Calcium Carbonate 500 MG Tablet PO (23:04)
[2021-04-01] MEDS: Allopurinol 300 MG Tablet PO (23:04)
[2021-04-01] MEDS: Enoxaparin 40 MG/0.4 ML Syringe SC (23:05)
[2021-04-01] MEDS: Nortriptyline 25 MG Capsule 50 MG PO (23:05)
[2021-04-01] MEDS: Fluticasone/Salmeterol 232-14 Inhaler 1 PUFF INHALATION (23:06)
[2021-04-02] VITALS (21 sets, daily range): BP systolic 101–121; BP diastolic 62–82; PULSE 100–115; RESP 18–28; TEMP 36–36.7; O2SAT 91–99
[2021-04-02] MEDS: Gemfibrozil 600 MG Tablet PO ×2 (06:39→17:11)
[2021-04-02 07:02] LABS: Absolute Lymphocyte Count 1.12 X10^3/uL (0.83-4.51); Absolute Neutrophil Count 2.3 X10^3/uL (2.0-7.7); Basophil# 0.02 X10^3/uL; Basophil% 0.5 % (0-1); Hematocrit 36.1 % (37-47); Hemoglobin 12.1 g/dL (12.0-15.0); Lymphocyte # 1.12 X10^3/ul (0.83-4.51); Lymphocyte % 26.4 % (19-41); Mean Corp Hgb Conc 33.5 g/dL (32-36); Mean Corpuscular Hgb 34.9 pg (27.0-32.0); Mean Platelet Vol. 9.8 fl (6.2-12.0); Monocyte# 0.68 X10^3/uL; NRBC Flagged by Analyzer 0 % (0-5); Neutrophil % 54.3 % (47-70); Platelet Count 506 K/mm3 (150-450); RBC Distribution Width CV 13.2 % (11.6-14.6); RBC Distribution Width SD 50.5 fl (35.1-43.9); Red Blood Count 3.47 M/mm3 (4.2-5.4); White Blood Count 4.2 K/mm3 (4.4-11.0)
[2021-04-02 07:26] LABS: ALB/GLOB Ratio 0.7 RATIO (0.9-2.4); AST(SGOT) 62 U/L (15-37); Alanine Aminotransfer ALT/SGPT 43 U/L (13-56); Alkaline Phosphatase 166 U/L (45-117); Anion Gap 14 (5-15); BUN 36 mg/dL (7-18); Calcium,Total 9.2 mg/dL (8.5-10.1); Chloride 105 mmol/L (98-107); Creatinine, Serum 1.64 mg/dL (0.55-1.02); EST Glomerular Filtration Rate 34 mL/min (>60); Est Glom Filt Rate - Afr Amer 41 mL/min (>60); Estimated Creatinine Clearance 31.11 ml/min; Globulin 4.1 g/dL (2.2-4.2); Glucose 112 mg/dL (74-106); Potassium 4.7 mmol/L (3.5-5.1); Protein, Total 7.1 g/dL (6.4-8.2); Sodium Level 136 mmol/L (136-145)
[2021-04-02] MEDS: dexAMETHasone 4 MG Tablet 6 MG PO (10:46)
[2021-04-02] MEDS: Cholecalciferol (VIT D3) 25 MCG TABLET (1,000 UNITS) 125 MCG PO (10:46)
[2021-04-02] MEDS: Lisinopril 20 MG Tablet PO (10:47)
[2021-04-02] MEDS: Calcium Carbonate 500 MG Tablet PO ×2 (10:47→20:43)
[2021-04-02] MEDS: Loratadine 10 MG Tablet PO (10:47)
[2021-04-02] MEDS: Multivitamins,Therapeutic Tablet 1 TABLET PO (10:47)
[2021-04-02] MEDS: Loperamide 2 MG Capsule PO (10:47)
[2021-04-02] MEDS: Allopurinol 300 MG Tablet PO ×2 (10:47→20:41)
[2021-04-02] MEDS: Pantoprazole Sodium 20 MG Tablet PO (10:47)
[2021-04-02] MEDS: Magnesium Chloride 64 MG Delay Rel.Tablet 128 MG PO (10:47)
[2021-04-02] MEDS: Enoxaparin 40 MG/0.4 ML Syringe SC ×2 (10:48→20:42)
[2021-04-02] MEDS: Fluticasone/Salmeterol 232-14 Inhaler 1 PUFF INHALATION ×2 (10:49→20:37)
[2021-04-02] MEDS: 0.9% Saline Lock 10 ML Syringe IV ×2 (11:02→20:40)
--- NOTE | 2021-04-02 11:17 | PN.HOSP_ITS ---
Subjective Subjective Patient seen and examined. She remains on air Vo. She had no active complaints today and feels she is getting better. He is on 55 L of oxygen via air Vo at FiO2 of 65%. Objective Data Objective Data Vital Signs: Vital Signs Temp Pulse Resp BP Pulse Ox 97.2 F L 113 H 18 101/72 92 04/02/21 10:39 04/02/21 10:39 04/02/21 10:39 04/02/21 10:39 04/02/21 10:39 Oxygen Flow Rate (L/min) 55 Oxygen Delivery Method Airvo Weight: 189 lb 6.033 oz Body Mass Index (BMI) 32.5 Intake & Output: Intake and Output for Last 24 Hours 03/31/21 04/01/21 04/02/21 23:59 23:59 23:59 Intake Total 1730 / 1730 1000 / 1000 Balance 1730 / 1730 1000 / 1000 Lab / Micro Data Result Diagrams: 04/02/21 06:07 04/02/21 06:07 Labs: Laboratory Results - last 24 hr 04/02/21 06:07: WBC 4.2 L, RBC 3.47 L, Hgb 12.1, Hct 36.1 L, MCV 104.0 H, MCH 34.9 H, MCHC 33.5, RDW Std Deviation 50.5 H, RDW Coeff of James 13.2, Plt Count 506 H, MPV 9.8, Immature Gran % (Auto) 2.800 H, Neut % (Auto) 54.3, Lymph % (Auto) 26.4, [place] % (Auto) 16.0 H, Eos % (Auto) 0.0, Baso % (Auto) 0.5, Absolute Neuts (auto) 2.3, Absolute Lymphs (auto) 1.12, Nucleated RBC % 0 04/02/21 06:07: Sodium 136, Potassium 4.7, Chloride 105, Carbon Dioxide 17.0 L, Anion Gap 14, BUN 36 H, Creatinine 1.64 H, Estim Creat Clear Calc 31.11, Est GFR (MDRD) Af Amer 41 L, Est GFR (MDRD) Non-Af 34 L, BUN/Creatinine Ratio 22.0 H, Glucose 112 H, Calcium 9.2, Total Bilirubin 0.30, AST 62 H, ALT 43, Alkaline Phosphatase 166 H, Total Protein 7.1, Albumin 3.0 L, Globulin 4.1, Albumin/Globulin Ratio 0.7 L Micro: Microbiology 04/01/21 14:48 Sputum, Expectorated/Coughed Gram Stain - Final 04/01/21 14:48 Sputum, Expectorated/Coughed Respiratory Culture - Preliminary Appears to be normal respiratory ellen. Further studies to follow. 04/01/21 09:15 Nasal Secretion SARS-CoV-2 Antigen (Rapid) - Final SARS-CoV-2 (COVID 19) Physical Exam Const alert and oriented x3 General Appearance: cooperative Orientation / Consciousness: lethargic Exam Limitations: no limitations HEENT normocephalic, head/scalp atraumatic, hearing grossly normal bilaterally and moist oral mucous membranes Head and Scalp: normocephalic Eyes PERRL, EOMs intact bilaterally and conjunctivae normal Neck no lymphadenopathy Resp Resp Narrative: diminished breath sounds bibasally, no wheezes, no crackles. on Airvo at 55L Cardio regular rate, regular rhythm, S1 normal heart sound, S2 normal heart sound and no murmurs GI normal to inspection, nondistended, normoactive bowel sounds, soft to palpation, non-tender and non-distended Extremity normal to inspection, full ROM and no clubbing, cyanosis or edema Peripheral Pulses: Yes pulses 2+ throughout Skin no rashes or lesions noted Neuro oriented x3, CN's II-XII intact bilaterally and moves all extremities Sensorium / Orientation: awake and alert Psych affect normal Assessment & Plan Assessment/Plan (1) COVID-19: (2) Acute hypoxemic respiratory failure due to COVID-19: PLAN: #Acute hypoxic respiratory failure due to COVID 19 pneumonia * remains on AirVo at 55L of oxygen, and FiO2 of 65%. * on remdesivir and decadron as well as baricitinib. * breathing treatment with bronchodilators * ID and pulmonology on board. * #SIRS criteria * Patient is tachycardic and tachypneic and less likely due to Covid infection. Hold off on antibiotics for now. Will monitor. * #Thrombocytosis * Platelets of 506 today. Was 415 yesterday. This is likely reactive from severe Covid. Will monitor. * #Hypertension: On lisinopril #CKD stage IIIb: Creatinine is up to 1.64 today. Baseline is ~ 1.1-1.3 Will m onitor. #Elevated D-dimer: D-dimer was 0.89. CTA negative for PE. Likely due to Covid. #Hyperlipidemia: on statin and gemfibrozil DVT prophylaxis: lovenox 40mg bid #GI prophylaxis: pantoprazole. Code status: full code Charges/Coding Visit Charges Inpatient E&M: 57350 Subs Hosp L3
--- NOTE | 2021-04-02 11:23 | PCM.PN.INT ---
Assessment & Plan Assessment/Plan (1) Acute hypoxemic respiratory failure due to COVID-19: PLAN: RECOMMENDATIONS: 1. Wean FiO2 to maintain oxygen saturations at or above 90%. 2. Continue remdesivir and baricitinib. Continue to monitor liver and renal function. 3. Continue Decadron to complete 10 days of therapy. 4. Continue prophylactic Lovenox twice daily. 5. Awake prone positioning was encouraged. IMPRESSIONS: 1. Acute hypoxemic respiratory failure secondary to COVID-19 pneumonia The patient was initially admitted to the hospital on April 01 with worsening dyspnea. The patient is vaccinated against coronavirus. She was subsequently started on Decadron, remdesivir and baricitinib, in light of her oxygenation status and need for heated high flow. Plan to wean FiO2 for saturations greater than 90%. CTA chest was negative for PE. Therefore, prophylactic Lovenox will be continued. Encourage incentive spirometer use and mobilize patient as tolerated. 2. Obesity/hypertension/chronic kidney disease/hyperlipidemia Complicates care, management, recovery and prognosis. Continue home medications as indicated. This note was generated with [employer] dictation software. It may contain incorrect words, spelling, and punctuation that were not noted in checking the note before signing. Subjective Subjective The patient was seen and examined at the bedside this morning. Events from the last 24 hours have been reviewed. The patient is currently afebrile, hemodynamically stable and maintaining appropriate oxygen saturations on Airvo heated high flow with an FiO2 requirement of 65% and flow rate of 55 L/min. The patient remains on remdesivir, Decadron, Lovenox and baricitinib. Creatinine has increased to 1.64. Objective Data Objective Data The patient's most recent lab work, culture data and imaging studies have all been personally reviewed. Rapid coronavirus antigen testing was positive on April 01. Vital Signs: Vital Signs Temp Pulse Resp BP Pulse Ox 97.2 F L 112 H 27 H 101/72 92 04/02/21 10:39 04/02/21 11:19 04/02/21 11:19 04/02/21 10:39 04/02/21 11:19 Oxygen Flow Rate (L/min) 55 Oxygen Delivery Method Airvo Weight: 85.9 kg Body Mass Index (BMI) 32.5 Intake & Output: Intake and Output for Last 24 Hours 03/31/21 04/01/2104/02/21 23:59 23:59 23:59 Intake Total 1730 / 1730 1000 / 1000 Balance 1730 / 1730 1000 / 1000 Lab / Micro Data Attestation: I reviewed the patient's lab results. Result Diagrams: 04/03/21 06:00 04/03/21 06:00 Labs: Laboratory Results - last 24 hr 04/02/21 06:07: WBC 4.2 L, RBC 3.47 L, Hgb 12.1, Hct 36.1 L, MCV 104.0 H, MCH 34.9 H, MCHC 33.5, RDW Std Deviation 50.5 H, RDW Coeff of James 13.2, Plt Count 506 H, MPV 9.8, Immature Gran % (Auto) 2.800 H, Neut % (Auto) 54.3, Lymph % (Auto) 26.4, [place] % (Auto) 16.0 H, Eos % (Auto) 0.0, Baso % (Auto) 0.5, Absolute Neuts (auto) 2.3, Absolute Lymphs (auto) 1.12, Nucleated RBC % 0 04/02/21 06:07: Sodium 136, Potassium 4.7, Chloride 105, Carbon Dioxide 17.0 L, Anion Gap 14, BUN 36 H, Creatinine 1.64 H, Estim Creat Clear Calc 31.11, Est GFR (MDRD) Af Amer 41 L, Est GFR (MDRD) Non-Af 34 L, BUN/Creatinine Ratio 22.0 H, Glucose 112 H, Calcium 9.2, Total Bilirubin 0.30, AST 62 H, ALT 43, Alkaline Phosphatase 166 H, Total Protein 7.1, Albumin 3.0 L, Globulin 4.1, Albumin/Globulin Ratio 0.7 L Micro: Microbiology 04/01/21 14:48 Sputum, Expectorated/Coughed Gram Stain - Final 04/01/21 14:48 Sputum, Expectorated/Coughed Respiratory Culture - Preliminary Appears to be normal respiratory ellen. Further studies to follow. 04/01/21 09:15 Nasal Secretion SARS-CoV-2 Antigen (Rapid) - Final SARS-CoV-2 (COVID 19) Physical Exam Const alert, oriented x3 and no apparent distress Nutritional Appearance: obese HEENT normocephalic, head/scalp atraumatic and moist oral mucous membranes Eyes PERRL, EOMs intact bilaterally and conjunctivae normal Neck supple General: trachea midline Chest inspection of chest normal Resp Auscultation: diminished lung sounds; Negative for rales, rhonchi or wheezes Cardio regular rate and regular rhythm GI normal to inspection, nondistended, normoactive bowel sounds Extremity no clubbing, cyanosis or edema Skin no rashes or lesions noted Neuro CN's II-XII intact bilaterally, moves all extremities and no focal motor deficits Psych cooperative and affect normal Charges/Coding Visit Charges Inpatient E&M: 31098 Subs Hosp L3
--- NOTE | 2021-04-02 14:45 | CM.ED ---
RN CM Assessment: Face to Face with patient for initial transition planning/care coordination assessment. Patient alert and oriented, sitting up in chair with AirVo in place, no apparent distress. CCM introduced self and role at [facility]. Care providers, pharmacy, and demographics verified. PCP: Noni Specialists: Richard- Infectious Disease Preferred Pharmacy: [facility] Insurance: Medicare & Par[employer] Prescription Benefit: yes Living Will/HPOA: Patient does not have LW or HPOA. LNOK: , Finn Saenz Living Arrangements: Patient lives with in one story house with 2 steps to enter home without railing. Patient states independent with ADLs prior to hospitalization. Social: former smoker (quit 15 years ago), drinks ETOH weekly (mixed drinks) Transportation: Patient drives self and denies needs with transportation. DME/HHC: Patient has grab bars in bathroom, as well as cane at home that she uses only on occasion. Denies other DME in home. Patient denies previous HHC or SNF stays. Patient first tested positive for COVID at [facility] on 04/01. Reports has had cold-like symptoms x 10-14 days. also has COVID at this time but will be out of quarantine on 04/04. Patient had COVID vaccine, including booster. Patient has no preference for DME company if home oxygen needed at time of discharge. Pt states no concerns with going home at time of dc. Pt states no further concerns/needs. CM to follow. Advised pt to ask CM if any further question/concerns/needs arise, voices understanding. Plan: home
--- NOTE | 2021-04-02 19:33 | PCS.PANDOC ---
PANDEMIC DOCUMENTATION INITIATED: Date: 11/19/2020 Time: 190
[2021-04-02] MEDS: Nortriptyline 25 MG Capsule 50 MG PO (20:40)
[2021-04-02] MEDS: Acetaminophen 325 MG Tablet 650 MG PO (20:41)
[2021-04-02] MEDS: Zolpidem Tartrate 5 MG Tablet 10 MG PO (20:42)
--- NOTE | 2021-04-02 20:46 | NURSING ---
Pt given 2200 medications early per patient request. Pt wanted to go to bed early as she did not sleep much at all last night.
[2021-04-03] VITALS (19 sets, daily range): BP systolic 86–108; BP diastolic 57–75; PULSE 97–109; RESP 16–27; TEMP 36.4–36.8; O2SAT 93–100
[2021-04-03] MEDS: Gemfibrozil 600 MG Tablet PO ×2 (06:14→15:51)
[2021-04-03 06:33] LABS: Absolute Lymphocyte Count 2.02 X10^3/uL (0.83-4.51); Absolute Neutrophil Count 4.6 X10^3/uL (2.0-7.7); Basophil# 0.03 X10^3/uL; Basophil% 0.4 % (0-1); Eosinophil# 0.01 X10^3/uL; Eosinophils% 0.1 % (0-5); Hematocrit 34.9 % (37-47); Hemoglobin 11.9 g/dL (12.0-15.0); Lymphocyte # 2.02 X10^3/ul (0.83-4.51); Mean Corp Hgb Conc 34.1 g/dL (32-36); Mean Corpuscular Hgb 34.6 pg (27.0-32.0); Mean Corpuscular Volume 101.5 fL (81-99); Mean Platelet Vol. 9.3 fl (6.2-12.0); Monocyte# 1.11 X10^3/uL; Monocyte% 13.8 % (0-10); NRBC Flagged by Analyzer 0 % (0-5); Neutrophil # 4.58 X10^3/uL (2.7-7.7); Neutrophil % 56.7 % (47-70); POSITIVE MORPHOLOGY YES; Platelet Count 633 K/mm3 (150-450); RBC Distribution Width CV 13.2 % (11.6-14.6); RBC Distribution Width SD 49.1 fl (35.1-43.9); Red Blood Count 3.44 M/mm3 (4.2-5.4); White Blood Count 8.1 K/mm3 (4.4-11.0)
[2021-04-03 06:37] LABS: Differential Indicated SCAN CRITERIA MET
[2021-04-03 06:55] LABS: ALB/GLOB Ratio 0.6 RATIO (0.9-2.4); AST(SGOT) 86 U/L (15-37); Alanine Aminotransfer ALT/SGPT 66 U/L (13-56); Albumin, Serum 3.1 g/dL (3.2-5.0); Alkaline Phosphatase 157 U/L (45-117); Anion Gap 15 (5-15); BUN 50 mg/dL (7-18); BUN/Creat Ratio 26.7 RATIO (10-20); Calcium,Total 9.3 mg/dL (8.5-10.1); Chloride 105 mmol/L (98-107); Creatinine, Serum 1.87 mg/dL (0.55-1.02); EST Glomerular Filtration Rate 29 mL/min (>60); Est Glom Filt Rate - Afr Amer 35 mL/min (>60); Estimated Creatinine Clearance 27.28 ml/min; Globulin 4.8 g/dL (2.2-4.2); Glucose 114 mg/dL (74-106); Potassium 4.1 mmol/L (3.5-5.1); Protein, Total 7.9 g/dL (6.4-8.2); Sodium Level 132 mmol/L (136-145)
[2021-04-03 06:59] LABS: Atypical Lymphocyte 1+ %; Differential Comment SCANNED
[2021-04-03] MEDS: Lisinopril 20 MG Tablet PO (09:12)
[2021-04-03] MEDS: Atorvastatin Calcium 10 MG Tablet PO (09:12)
[2021-04-03] MEDS: dexAMETHasone 4 MG Tablet 6 MG PO (09:12)
[2021-04-03] MEDS: Multivitamins,Therapeutic Tablet 1 TABLET PO (09:12)
[2021-04-03] MEDS: Magnesium Chloride 64 MG Delay Rel.Tablet 128 MG PO (09:12)
[2021-04-03] MEDS: Pantoprazole Sodium 20 MG Tablet PO (09:12)
[2021-04-03] MEDS: Allopurinol 300 MG Tablet PO ×2 (09:13→22:06)
[2021-04-03] MEDS: Calcium Carbonate 500 MG Tablet PO ×2 (09:13→22:06)
[2021-04-03] MEDS: Loratadine 10 MG Tablet PO (09:13)
[2021-04-03] MEDS: Enoxaparin 40 MG/0.4 ML Syringe SC ×2 (09:13→22:06)
[2021-04-03] MEDS: Cholecalciferol (VIT D3) 25 MCG TABLET (1,000 UNITS) 125 MCG PO (09:13)
[2021-04-03] MEDS: Fluticasone/Salmeterol 232-14 Inhaler 1 PUFF INHALATION ×2 (10:29→22:07)
--- NOTE | 2021-04-03 11:06 | PN.HOSP_ITS ---
Subjective Subjective Patient seen and examined. She remains on air Vo. She has no other active complaints and states she is feeling better. Review of systems otherwise negative. Objective Data Objective Data Vital Signs: Vital Signs Temp Pulse Resp BP Pulse Ox 98.1 F 105 H 18 102/65 97 04/03/21 10:27 04/03/21 10:27 04/03/21 10:27 04/03/21 10:27 04/03/21 10:27 Oxygen Flow Rate (L/min) 55 Oxygen Delivery Method Airvo Weight: 189 lb 6.033 oz Body Mass Index (BMI) 32.5 Intake & Output: Intake and Output for Last 24 Hours 04/01/21 04/02/21 04/03/21 23:59 23:59 23:59 Intake Total 1730 / 1730 1969 Balance 1730 / 1730 1969 Lab / Micro Data Result Diagrams: 04/03/21 06:00 04/03/21 06:00 Labs: Laboratory Results - last 24 hr 04/03/21 06:00: WBC 8.1, RBC 3.44 L, Hgb 11.9 L, Hct 34.9 L, MCV 101.5 H, MCH 34.6 H, MCHC 34.1, RDW Std Deviation 49.1 H, RDW Coeff of James 13.2, Plt Count 633 H, MPV 9.3, Immature Gran % (Auto) 4.000 H, Neut % (Auto) 56.7, Lymph % (Auto) 25.0, [place] % (Auto) 13.8 H, Eos % (Auto) 0.1, Baso % (Auto) 0.4, Absolute Neuts (auto) 4.6, Absolute Lymphs (auto) 2.02, Nucleated RBC % 0, Differential Comment SCANNED, Atypical Lymphocytes 1+ 04/03/21 06:00: Sodium 132 L, Potassium 4.1, Chloride 105, Carbon Dioxide 12.0 L , Anion Gap 15, BUN 50 H, Creatinine 1.87 H, Estim Creat Clear Calc 27.28, Est GFR (MDRD) Af Amer 35 L, Est GFR (MDRD) Non-Af 29 L, BUN/Creatinine Ratio 26.7 H , Glucose 114 H, Calcium 9.3, Total Bilirubin 0.30, AST 86 H, ALT 66 H, Alkaline Phosphatase 157 H, Total Protein 7.9, Albumin 3.1 L, Globulin 4.8 H, Albumin/ Globulin Ratio 0.6 L Micro: Microbiology 04/01/21 09:45 Blood Culture (Wb) - Left Forearm Blood Culture - Preliminary No growth in 48 hours. 04/01/21 09:25 Blood Culture (Wb) - Anticubital Left Blood Culture - Preliminary No growth in 48 hours. 04/01/21 14:48 Sputum, Expectorated/Coughed Gram Stain - Final 04/01/21 14:48 Sputum, Expectorated/Coughed Respiratory Culture - Preliminary Gram negative renée 04/02/21 14:50 Urine, Clean Catch Legionella Antigen - Final 04/02/21 14:50 Urine, Clean Catch Streptococcus pneumoniae Antigen (M - Final 04/01/21 09:15 Nasal Secretion SARS-CoV-2 Antigen (Rapid) - Final SARS-CoV-2 (COVID 19) Physical Exam Const alert and oriented x3 General Appearance: cooperative Exam Limitations: no limitations HEENT normocephalic, head/scalp atraumatic, hearing grossly normal bilaterally and moist oral mucous membranes Head and Scalp: normocephalic Eyes PERRL, EOMs intact bilaterally and conjunctivae normal Neck no lymphadenopathy Resp Resp Narrative: diminished breath sounds bibasally, no wheezes, no crackles. on Airvo Cardio regular rate, regular rhythm, S1 normal heart sound, S2 normal heart sound and no murmurs GI normal to inspection, nondistended, normoactive bowel sounds, soft to palpation, non-tender and non-distended Extremity normal to inspection, full ROM and no clubbing, cyanosis or edema Peripheral Pulses: Yes pulses 2+ throughout Skin no rashes or lesions noted Neuro oriented x3, CN's II-XII intact bilaterally and moves all extremities Sensorium / Orientation: awake and alert Psych affect normal Assessment & Plan Assessment/Plan (1) COVID-19: (2) Acute hypoxemic respiratory failure due to COVID-19: PLAN: #Acute hypoxic respiratory failure due to COVID 19 pneumonia * remains on AirVo * on remdesivir and decadron as well as baricitinib. * breathing treatment with bronchodilators * ID and pulmonology on board. * #SIRS criteria * improving. Due to covid. WIll monitor * #Thrombocytosis * Platelets are up to 633 today. This is likely reactive from severe Covid. Will monitor. * #Hypertension: On lisinopril # ROSAS on CKD stage IIIb: * Creatinine is up to 1.87 today. Baseline is ~ 1.1-1.3. * THis is likely due to covid. * IF CR trends further upwards, will consult nephrology. #Elevated D-dimer: D-dimer was 0.89. CTA negative for PE. Likely due to Covid. #Hyperlipidemia: on statin and gemfibrozil DVT prophylaxis: lovenox 40mg bid #GI prophylaxis: pantoprazole. Code status: full code Charges/Coding Visit Charges Inpatient E&M: 47575 Subs Hosp L3
[2021-04-03] MEDS: 0.9% Normal Saline 1,000 ML 100 ML IV (11:27)
[2021-04-03] MEDS: Acetaminophen 325 MG Tablet 650 MG PO (20:24)
[2021-04-03] MEDS: Nortriptyline 25 MG Capsule 50 MG PO (22:05)
[2021-04-03] MEDS: Zolpidem Tartrate 5 MG Tablet 10 MG PO (22:06)
[2021-04-04] VITALS (10 sets, daily range): BP systolic 119–134; BP diastolic 76–81; PULSE 101–107; RESP 18–19; TEMP 36.5–36.8; O2SAT 84–95
[2021-04-04] MEDS: Gemfibrozil 600 MG Tablet PO (06:05)
[2021-04-04 06:26] LABS: Absolute Lymphocyte Count 1.79 X10^3/uL (0.83-4.51); Basophil# 0.02 X10^3/uL; Basophil% 0.2 % (0-1); Eosinophil# 0.01 X10^3/uL; Eosinophils% 0.1 % (0-5); Hemoglobin 11.2 g/dL (12.0-15.0); Lymphocyte # 1.79 X10^3/ul (0.83-4.51); Lymphocyte % 21.6 % (19-41); Mean Corp Hgb Conc 33.9 g/dL (32-36); Mean Corpuscular Hgb 34.7 pg (27.0-32.0); Mean Corpuscular Volume 102.2 fL (81-99); Mean Platelet Vol. 9.3 fl (6.2-12.0); Monocyte# 1.08 X10^3/uL; NRBC Flagged by Analyzer 0 % (0-5); Neutrophil # 4.98 X10^3/uL (2.7-7.7); Neutrophil % 60.2 % (47-70); POSITIVE MORPHOLOGY YES; Platelet Count 598 K/mm3 (150-450); RBC Distribution Width CV 13.2 % (11.6-14.6); RBC Distribution Width SD 49.5 fl (35.1-43.9); Red Blood Count 3.23 M/mm3 (4.2-5.4); White Blood Count 8.3 K/mm3 (4.4-11.0)
[2021-04-04 06:42] LABS: Differential Indicated SCAN CRITERIA MET
[2021-04-04 06:49] LABS: Atypical Lymphocyte 1+ %
[2021-04-04 06:59] LABS: ALB/GLOB Ratio 0.6 RATIO (0.9-2.4); AST(SGOT) 68 U/L (15-37); Alanine Aminotransfer ALT/SGPT 66 U/L (13-56); Albumin, Serum 2.7 g/dL (3.2-5.0); Alkaline Phosphatase 135 U/L (45-117); Anion Gap 12 (5-15); BUN 53 mg/dL (7-18); BUN/Creat Ratio 37.3 RATIO (10-20); Calcium,Total 9.1 mg/dL (8.5-10.1); Chloride 112 mmol/L (98-107); Creatinine, Serum 1.42 mg/dL (0.55-1.02); EST Glomerular Filtration Rate 40 mL/min (>60); Est Glom Filt Rate - Afr Amer 48 mL/min (>60); Estimated Creatinine Clearance 35.93 ml/min; Globulin 4.4 g/dL (2.2-4.2); Glucose 89 mg/dL (74-106); Potassium 4.2 mmol/L (3.5-5.1); Protein, Total 7.1 g/dL (6.4-8.2); Sodium Level 135 mmol/L (136-145)
[2021-04-04] MEDS: Allopurinol 300 MG Tablet PO (10:12)
[2021-04-04] MEDS: Calcium Carbonate 500 MG Tablet PO (10:12)
[2021-04-04] MEDS: Cholecalciferol (VIT D3) 25 MCG TABLET (1,000 UNITS) 125 MCG PO (10:12)
[2021-04-04] MEDS: Pantoprazole Sodium 20 MG Tablet PO (10:13)
[2021-04-04] MEDS: Magnesium Chloride 64 MG Delay Rel.Tablet 128 MG PO (10:14)
[2021-04-04] MEDS: Multivitamins,Therapeutic Tablet 1 TABLET PO (10:14)
[2021-04-04] MEDS: Loratadine 10 MG Tablet PO (10:15)
[2021-04-04] MEDS: Lisinopril 20 MG Tablet PO (10:15)
[2021-04-04] MEDS: dexAMETHasone 4 MG Tablet 6 MG PO (10:15)
[2021-04-04] MEDS: Atorvastatin Calcium 10 MG Tablet PO (10:15)
[2021-04-04] MEDS: Enoxaparin 40 MG/0.4 ML Syringe SC (10:16)
[2021-04-04] MEDS: Fluticasone/Salmeterol 232-14 Inhaler 1 PUFF INHALATION (10:16)
--- NOTE | 2021-04-04 12:00 | DS.PCM_ITS ---
Providers Date of Admission: 04/01/21 Primary Care Physician: Dr. Sterling Tinoco MD Consultations 04/01/21 12:50 Consult: Electrolysis Operator / Pulmonary Medicine Routine Consulting Provider: Pulmonary Medicine victoria Werner Reason for Consult: Covid-19 EMERGENT Consult: No Notified: Yes Date Notified: 04/01/21 Time Notified: 12:50 Method of Notification: Text 04/01/21 12:51 Consult: Infectious Disease Routine Consulting Provider: Kush Ramos Reason for Consult: Covid-19 EMERGENT Consult: No Notified: Yes Date Notified: 04/01/21 Time Notified: 12:51 Method of Notification: Verbal Reason For Visit: ACUTE HYPOXIC RESPIRATORY FAILURE DUE TO COVID Diagnosis Discharge Diagnosis (1) Acute hypoxemic respiratory failure due to COVID-19: Status: Acute Code(s): U07.1 - COVID-19; J96.01 - Acute respiratory failure with hypoxia Medications at Discharge Home Medications loratadine 10 mg PO DAILY 09/21/13 omeprazole 20 mg PO DAILY 09/21/13 calcium citrate-vitamin D3 315 mg PO BID 10/24/16 cholecalciferol (vitamin D3) 500 mg PO DAILY 10/24/16 fluticasone furoate-vilanterol 1 ea IH DAILY 10/24/16 gemfibrozil 600 mg PO BIDAC 10/24/16 magnesium 400 mg PO DAILY 10/24/16 multivitamin 1 ea PO DAILY 10/24/16 zolpidem 10 mg PO QHS 10/24/16 albuterol mcg INHALATION 04/01/21 allopurinol 300 mg PO BID 04/01/21 lisinopril 20 mg PO DAILY 04/01/21 nortriptyline 50 mg PO.IVFORM QHS 04/01/21 rosuvastatin [Crestor] 5 mg PO DAILY 04/01/21 zolpidem [Ambien] 10 mg PO QHS PRN 04/01/21 dexamethasone 6 mg PO DAILY #7 tab 04/04/21 Hospital Course Operations None Procedures None Summary of Care Provided Minutes Spent on Discharge: 40 Hospital Course: VAMSI MARCUS, is a 60 F with an extensive PMH as outlined who was admitted via the ED on with a complain of shortness of br eath. Patient started having some cold like symptoms 2 weeks ago, and had associated rhinorrhea. She was subsequently exposed to covid 19 as her tested positive. She had been at home, supposedly doing well with her oxyen saturations which they had been monitoring. However, her shortness of breath worsened so she was brought in to the ED today. She has receied the vaccines and also the booster. VItals in the ED were SD of 101F, SD of 98.7F, RR of 14 and Pulse ox of 94% on Airvo a 45L of oxygen. CBC showed hemoglobin of 12.4 with platelets of 415 and WBC of 8.1. Chemistry was remarkable for sodium of 131 and creatinine of 1.37. CRP was elevated at 256 and fibrinogen was also elevated. CT of the chest was negative for PE; D-dimer was elevated. She was admitted to be managed for acute hypoxic respiratory failure due to covid 19 pneumonia. She was started on decadron and remdesivir. ID and pulmonology were consulted. She was also started on baricitinib. She was weaned off of airvo onto oxygen 2L. She had walking pulse ox which showed hat she required 4L of oxygen with ambulation. 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 She is to remain in isolation till 03/14/2021. Patient seen and examined prior to discharge. She had no active complaints and felt well. REview of systems was otherwise negative. Labs and vitals reviewed. Home meds reviewed and reconciled. Physical Exam Const alert, oriented x3 and no apparent distress General Appearance: cooperative and comfortable Orientation / Consciousness: lethargic Exam Limitations: no limitations HEENT normocephalic, head/scalp atraumatic, hearing grossly normal bilaterally and moist oral mucous membranes Eyes PERRL, EOMs intact bilaterally and conjunctivae normal Neck no lymphadenopathy Resp normal respiratory effort Resp Narrative: diminished breath sounds bibasally, no wheezes, no crackles. on 2L of oxygen by nasal canula Cardio regular rate, regular rhythm, S1 normal heart sound, S2 normal heart sound and no murmurs GI normal to inspection, nondistended, normoactive bowel sounds, soft to palpation, non-tender and non-distended Extremity normal to inspection, full ROM and no clubbing, cyanosis or edema Skin no rashes or lesions noted Neuro oriented x3, CN's II-XII intact bilaterally and moves all extremities Sensorium / Orientation: awake and alert Psych affect normal Weight / BMI Weight Weight: 189 lb 6.033 oz Body Mass Index (BMI) 32.5 ABG / Lab / Microbiology Data Result Diagrams: 04/04/21 05:57 04/04/21 05:57 Laboratory: Laboratory Results - last 24 hr 04/04/21 05:57: WBC 8.3, RBC 3.23 L, Hgb 11.2 L, Hct 33.0 L, MCV 102.2 H, MCH 34.7 H, MCHC 33.9, RDW Std Deviation 49.5 H, RDW Coeff of James 13.2, Plt Count 598 H, MPV 9.3, Immature Gran % (Auto) 4.900 H, Neut % (Auto) 60.2, Lymph % (Auto) 21.6, [place] % (Auto) 13.0 H, Eos % (Auto) 0.1, Baso % (Auto) 0.2, Absolute Neuts (auto) 5.0, Absolute Lymphs (auto) 1.79, Nucleated RBC % 0, Atypical Lymphocytes 1+ 04/04/21 05:57: Sodium 135 L, Potassium 4.2, Chloride 112 H, Carbon Dioxide 11.0 L, Anion Gap 12, BUN 53 H, Creatinine 1.42 H, Estim Creat Clear Calc 35.93, Est GFR (MDRD) Af Amer 48 L, Est GFR (MDRD) Non-Af 40 L, BUN/Creatinine Ratio 37.3 H , Glucose 89, Calcium 9.1, Total Bilirubin 0.20, AST 68 H, ALT 66 H, Alkaline Phosphatase 135 H, Total Protein 7.1, Albumin 2.7 L, Globulin 4.4 H, Albumin/Mary Ann bulin Ratio 0.6 L Microbiology: Microbiology 04/01/21 14:48 Sputum, Expectorated/Coughed Gram Stain - Final 04/01/21 14:48 Sputum, Expectorated/Coughed Respiratory Culture - Final Pseudomonas aeroginosa 04/01/21 09:45 Blood Culture (Wb) - Left Forearm Blood Culture - Preliminary No growth in 48 hours. 04/01/21 09:25 Blood Culture (Wb) - Anticubital Left Blood Culture - Preliminary No growth in 48 hours. 04/02/21 14:50 Urine, Clean Catch Legionella Antigen - Final 04/02/21 14:50 Urine, Clean Catch Streptococcus pneumoniae Antigen (M - Final 04/01/21 09:15 Nasal Secretion SARS-CoV-2 Antigen (Rapid) - Final SARS-CoV-2 (COVID 19) D/C Instructions Discharge Diet: Low fat / Low cholesterol Discharge Activity: Return to Normal Activity Weight Bearing Status: Weight bearing as tolerated Call your doctor if you observe: Fever of 101 or Higher, Shortness of breath, Dizziness and Swelling in the ankles Meaningful Use Info Meaningful Use Diagnoses (Choose all that apply): None applicable Discharge Plan Admission Admit Date/Time: 04/01/21 11:36 Primary Reason for Your Visit: acute hypoxic respiratory failure due to covid 19 pneumonia Attending Provider: Elle Lynn Primary Care Provider: Sterling Tinoco Consulting Providers: Kush Ramos ; Pineda Briseno ; Zachary Yoo ; Jennifer Nunez ANALOG CIRCUIT DESIGNER Instructions Patient Instructions: Coronavirus Disease 2019 (COVID-19): Overview Additional Instructions / Restrictions: use oxygen 4L for shortness of breath as needed. Discharge Orders/Prescriptions Prescriptions: New dexamethasone 6 mg tablet 6 mg PO DAILY Qty: 7 RF: 0 Continued omeprazole 20 MG capsule 20 mg PO DAILY RF: 0 loratadine 10 MG tablet 10 mg PO DAILY RF: 0 multivitamin 1 EACH tablet 1 ea PO DAILY RF: 0 gemfibrozil 600 MG tablet 600 mg PO BIDAC RF: 0 zolpidem 10 MG tablet 10 mg PO QHS RF: 0 magnesium 200 MG tablet 400 mg PO DAILY RF: 0 cholecalciferol (vitamin D3) 1,000 UNIT tablet 500 mg PO DAILY RF: 0 calcium citrate-vitamin D3 1 EACH tablet 315 mg PO BID RF: 0 fluticasone furoate-vilanterol 1 EACH blister with device 1 ea IH DAILY RF: 0 nortriptyline 50 MG 50 mg PO.IVFORM QHS RF: 0 lisinopril 20 mg Tablet 20 mg PO DAILY RF: 0 allopurinol 300 mg Tablet 300 mg PO BID RF: 0 albuterol 90 mcg/actuation Aerosol INHALATION RF: 0 zolpidem [Ambien] 10 mg Tablet 10 mg PO QHS PRN (Reason: Sleep) RF: 0 rosuvastatin [Crestor] 5 mg Tablet 5 mg PO DAILY RF: 0 Referrals / Follow Up: Brown,Zachary, DO [STAFF PHYSICIAN] - Within 2 Weeks Sterling Tinoco MD [Primary Care Provider] - Within 2 Weeks Disposition Disposition (needs filled in before D/C Order can be placed): Home, Self Care Charges/Coding Visit Charges Inpatient E&M: 95091 Disch Hosp
--- NOTE | 2021-04-04 14:53 | CASEMGMT ---
Addendum entered by Ginette Souza 04/04/21 15:03: Per Tamara at [facility], faxed oxygen order has been received. Tamara aware that portable tank needs to be delivered to hospital as patient is discharging today. Original Note: Per Shad VIRAMONTES, patient qualifies for 4L O2 with exertion. Script faxed to [facility]. Call to [facility] to confirm fax received. Red VIRAMONTES CM
== END 2021-04-04 17:19 | disposition home or self-care (01) | DRG 177 ==
LOC: ED 11:13 → ICU 11:57 → PCU 04-02 09:10
PROVIDERS: Admitting Provider Student in an Organized Health Care Education/Training Program; Emergency Provider Emergency Medicine; PCP Family Medicine; Visit Provider Student in an Organized Health Care Education/Training Program
DX: U07.1 COVID-19 (principal); J12.82 Pneumonia due to coronavirus disease 2019; J96.01 Acute respiratory failure with hypoxia; J44.0 Chronic obstructive pulmonary disease with (acute) lower respiratory infection; N17.9 Acute kidney failure, unspecified; D75.838 Other thrombocytosis; I12.9 Hypertensive chronic kidney disease with stage 1 through stage 4 chronic kidney disease, or unspecified chronic kidney disease; N18.32 Chronic kidney disease, stage 3b; E78.5 Hyperlipidemia, unspecified; K21.9 Gastro-esophageal reflux disease without esophagitis; R79.1 Abnormal coagulation profile; E66.9 Obesity, unspecified; Z68.32 Body mass index [BMI] 32.0-32.9, adult; Z79.899 Other long term (current) drug therapy; Z87.891 Personal history of nicotine dependence
CPT/HCPCS: 36415; 71275; 80053; 82550; 83605; 83615; 83880; 84145; 84484; 85025; 85379; 85384; 86140; 87040; 87070; 87077; 87186; 87205; 87426; 87449; 93005; 94660; 97110; 97116; 97162; 97166; 97530; 97535; 99285; J7030; J7050; Q9967; A4216; J0248

== ENCOUNTER 2021-04-15 11:51 | Outpatient (CLI) | payer BC, MEDICARE, SELFPAY ==
[2021-04-15 15:24] LABS: Absolute Lymphocyte Count 0.89 X10^3/uL (0.83-4.51); Absolute Neutrophil Count 11.6 X10^3/uL (2.0-7.7); Basophil# 0.03 X10^3/uL; Basophil% 0.2 % (0-1); Eosinophil# 0.36 X10^3/uL; Eosinophils% 2.5 % (0-5); Hemoglobin 11.9 g/dL (12.0-15.0); Lymphocyte # 0.89 X10^3/ul (0.83-4.51); Lymphocyte % 6.1 % (19-41); Mean Corp Hgb Conc 31.3 g/dL (32-36); Mean Corpuscular Hgb 33.3 pg (27.0-32.0); Mean Corpuscular Volume 106.4 fL (81-99); Mean Platelet Vol. 10.2 fl (6.2-12.0); Monocyte# 1.59 X10^3/uL; Monocyte% 10.8 % (0-10); NRBC Flagged by Analyzer 0 % (0-5); Neutrophil # 11.61 X10^3/uL (2.7-7.7); POSITIVE DIFFERENTIAL YES; Platelet Count 592 K/mm3 (150-450); RBC Distribution Width CV 13.7 % (11.6-14.6); RBC Distribution Width SD 53.9 fl (35.1-43.9); Red Blood Count 3.57 M/mm3 (4.2-5.4); White Blood Count 14.7 K/mm3 (4.4-11.0)
[2021-04-15 15:26] LABS: Differential Indicated SCAN CRITERIA MET
[2021-04-15 15:50] LABS: Differential Comment SCANNED
[2021-04-15 15:53] LABS: Anion Gap 13 (5-15); BUN 60 mg/dL (7-18); BUN/Creat Ratio 28.8 RATIO (10-20); Calcium,Total 10.3 mg/dL (8.5-10.1); Chloride 106 mmol/L (98-107); Creatinine, Serum 2.08 mg/dL (0.55-1.02); EST Glomerular Filtration Rate 26 mL/min (>60); Est Glom Filt Rate - Afr Amer 31 mL/min (>60); Glucose 84 mg/dL (74-106); Potassium 5.1 mmol/L (3.5-5.1); Sodium Level 132 mmol/L (136-145)
== END 2021-04-15 23:59 | disposition short-term general hospital (02) ==
LOC: MFPLAB 11:54
PROVIDERS: PCP Family Medicine; Visit Provider Family Medicine
DX: R42 Dizziness and giddiness (principal)
CPT/HCPCS: 36415; 80048; 85025

== ENCOUNTER 2021-04-19 08:36 | Outpatient (CLI) | payer BC, MEDICARE, SELFPAY ==
[2021-04-19 10:45] LABS: Anion Gap 9 (5-15); BUN 26 mg/dL (7-18); Calcium,Total 9.9 mg/dL (8.5-10.1); Chloride 106 mmol/L (98-107); Creatinine, Serum 1.24 mg/dL (0.55-1.02); EST Glomerular Filtration Rate 47 mL/min (>60); Est Glom Filt Rate - Afr Amer 56 mL/min (>60); Glucose 102 mg/dL (74-106); Sodium Level 133 mmol/L (136-145)
== END 2021-04-19 23:59 | disposition short-term general hospital (02) ==
LOC: MFPLAB 08:38
PROVIDERS: PCP Family Medicine; Referring Provider Family Medicine; Visit Provider Family Medicine
DX: R42 Dizziness and giddiness (principal)
CPT/HCPCS: 36415; 80048

== ENCOUNTER 2021-05-13 12:01 | Emergency (ER) | payer BC, MEDICARE, SELFPAY ==
[2021-05-13 12:02] VITALS: BP 135/78; PULSE 123; RESP 18; TEMP 36.7; O2SAT 100; BMI 32.3
--- NOTE | 2021-05-13 12:06 | ED.RN ---
CALLED FOR EKG AT 1205.
--- NOTE | 2021-05-13 12:42 | EKG12_ITS ---
Test Reason : PALPS Blood Pressure : / mmHG Vent. Rate : 119 BPM Atrial Rate : 119 BPM P-R Int : 174 ms QRS Dur : 124 ms QT Int : 312 ms P-R-T Axes : 044 -06 017 degrees QTc Int : 438 ms Sinus tachycardia Right bundle branch block Low voltage QRS Abnormal ECG Confirmed by LAUREN VALERO, BURT ([id number]), editorial writer LOLITA DENNY ([id number]) on 05/14/2021 11:33:55 AM Referred By: EVITA Confirmed By:BURT AGUILAR MD
--- NOTE | 2021-05-13 12:42 | RAD_ITS ---
STUDY: X-RAY CHEST REASON FOR EXAM: Female, 60 years old. sob TECHNIQUE: Single AP portable view of the chest. COMPARISON: No prior chest radiograph is available for comparison at this time. FINDINGS: Hyperinflation. The lungs are clear. There is no demonstrated pleural abnormality. Normal size heart. Normal mediastinum and rosie. Normal visualized pulmonary arteries. There is atherosclerotic tortuosity of the aortic arch and descending thoracic aorta. Normal visualized thoracic spine. Normal visualized ribs, clavicles, and shoulders. There is no demonstrated abnormality of the visualized soft tissue structures of the upper abdomen. RAD/Chest 1 View (Portable) IMPRESSION: Hyperinflation. The lungs are clear. Electronically Signed: Anup Jeffers MD at 13:38 EST ,
--- NOTE | 2021-05-13 12:43 | EDS_ITS ---
HPI History of Present Illness Chief Complaint: Palpitations Informant: patient Narrative Narrative: Patient presented to PCPs office today for routine blood pressure check. While there her heart rate was noted to be high. EKG there raise question for possible atrial flutter. Patient sent to the emergency room. She denies having palpitations or chest pain. She has had shortness of breath, but attributes this to her smoking history and recent Covid infection. [facility] Medical History Acute hypoxemic respiratory failure due to COVID-19 COVID-19 GERD (gastroesophageal reflux disease) HLD (hyperlipidemia) Hypertension IBS (irritable bowel syndrome) Plantar fasciitis of left foot Home Medications loratadine 10 mg PO DAILY 09/21/13 [History Last Taken Unknown] omeprazole 20 mg PO DAILY 09/21/13 [History Last Taken 10/31/16 06:30] calcium citrate-vitamin D3 315 mg PO BID 10/24/16 [History Last Taken Unknown] cholecalciferol (vitamin D3) 500 mg PO DAILY 10/24/16 [History Last Taken Unknown] fluticasone furoate-vilanterol 1 ea IH DAILY 10/24/16 [History Last Taken 06:30] gemfibrozil 600 mg PO BIDAC 10/24/16 [History Last Taken Unknown] magnesium 400 mg PO DAILY 10/24/16 [History Last Taken Unknown] multivitamin 1 ea PO DAILY 10/24/16 [History Last Taken Unknown] zolpidem 10 mg PO QHS 10/24/16 [History Last Taken Unknown] albuterol mcg INHALATION 04/01/21 [History Last Taken Unknown] allopurinol 300 mg PO BID 04/01/21 [History Last Taken Unknown] lisinopril 20 mg PO DAILY 04/01/21 [History Last Taken Unknown] rosuvastatin [Crestor] 5 mg PO DAILY 04/01/21 [History Last Taken Unknown] zolpidem [Ambien] 10 mg PO QHS PRN 04/01/21 [History Last Taken Unknown] metoprolol tartrate 25 mg PO BID #60 tab 05/13/21 [Rx Last Taken Unknown] Allergy/AdvReac Type Severity Reaction Status Date / Time levofloxacin [From Levaquin] AdvReac Diarrhea Verified 05/13/21 12:02 Social History Smoking Status: Former smoker substance use type: does not use ROS ROS ED Constitutional Constitutional ED: Denies chills or fever(s) Eyes Eyes: Denies change in vision ENT ENT ED: Denies sore throat Cardiovascular Cardiovascular: Denies chest pain or palpitations Respiratory/Chest Respiratory/Chest: Reports dyspnea; Denies cough Gastrointestinal Gastrointestinal: Denies abdominal pain, nausea or vomiting Genitourinary Genitourinary ED: Denies dysuria Musculoskeletal Musculoskeletal: Denies back pain or neck pain Integumentary Denies rash Neurologic Neurologic: Denies headache(s) or weakness Allergic/Immunologic Allergic/Immunologic ED: Denies urticaria EXAM Physical Exam Const Vital Signs: 05/13/21 12:02 05/13/21 12:15 05/13/21 13:18 Temperature 98.0 F Temperature Source Temporal Pulse Rate 123 H 115 H Respiratory Rate 18 23 H Respiratory Effort Normal Blood Pressure 135/78 H 147/91 H Blood Pressure Mean 97 109 Pulse Ox 100 96 Oxygen Delivery Method Room Air Room Air Positive well nourished and well developed General Appearance ED: well developed HEENT Reports moist mucous membranes Eyes PERRL and EOMs intact bilaterally Neck supple Chest Wall inspection of chest normal and palpation of chest normal Resp normal respiratory effort and clear to auscultation bilaterally Cardio Rate: tachycardic GI normal to inspection, nondistended, normoactive bowel sounds and non-tender Palpation: soft Extremity normal to inspection Neuro oriented x3 Sensorium / Orientation: alert Psych mental status grossly normal Skin no rashes or lesions noted MDM MDM MDM Narrative Medical decision making narrative: 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 EKG, lab work, chest x-ray obtained. Lab Data Attestation: I reviewed the patient's lab results. Labs: Laboratory Results - last 24 hr 05/13/21 05/13/21 05/13/21 12:50 12:50 12:50 WBC 10.8 RBC 3.36 L Hgb 11.7 L Hct 34.0 L MCV 101.2 H MCH 34.8 H MCHC 34.4 RDW Std Deviation 59.1 H RDW Coeff of James 16.0 H Plt Count 393 MPV 9.5 Immature Gran % (Auto) 1.700 H Neut % (Auto) 68.7 Lymph % (Auto) 15.6 L [place] % (Auto) 9.7 Eos % (Auto) 3.5 Baso % (Auto) 0.8 Absolute Neuts (auto) 7.4 Absolute Lymphs (auto) 1.68 Nucleated RBC % 0 D-Dimer Quant (PE/DVT) 0.40 Sodium 135 L Potassium 4.1 Chloride 107 Carbon Dioxide 17.0 L Anion Gap 11 BUN 35 H Creatinine 1.37 H Estim Creat Clear Calc 37.24 Est GFR (MDRD) Af Amer 50 L Est GFR (MDRD) Non-Af 42 L BUN/Creatinine Ratio 25.5 H Glucose 101 Calcium 9.2 Troponin I High Sens 4 TSH 6.09 H Radiography Chest X-Ray - ED: 1 View, Read by ED Physician and Chronic Changes Diagnostic Testing: Clinical Impression(s) from Imaging Studies Chest X-Ray 05/13/21 12:42 IMPRESSION: Hyperinflation. The lungs are clear. Electronically Signed: Anup Jeffers MD at 13:38 EST , EKG Initial EKG: Interpretation: Sinus Tachycardia (Sinus tach at 119. No acute ischemia.) Treatment and Re-Evaluation Comments:: Patient's heart rate is currently 112. I did review her recent hospital admission and she only had 1 heart rate recorded under 100 throughout her hospital stay. Lab work is reviewed and is remarkable for TSH of 6.09. D- dimer is negative. EKG at this time is consistent with sinus tachycardia. Patient discussed with Dr. Tinoco. I did send T3 and free T4. He will follow up on this. Patient be started on metoprolol 25 mg twice daily. Return instructions provided. Discharge Plan Triage Chief Complaint: Palpitations ED Provider: Aleta Mendoza Dx/Rx/DC Orders Clinical Impression: Sinus tachycardia Instructions: Understanding Tachycardia Prescriptions: New metoprolol tartrate 25 mg tablet 25 mg PO BID Qty: 60 RF: 0 No Action omeprazole 20 MG capsule 20 mg PO DAILY RF: 0 loratadine 10 MG tablet 10 mg PO DAILY RF: 0 multivitamin 1 EACH tablet 1 ea PO DAILY RF: 0 gemfibrozil 600 MG tablet 600 mg PO BIDAC RF: 0 zolpidem 10 MG tablet 10 mg PO QHS RF: 0 magnesium 200 MG tablet 400 mg PO DAILY RF: 0 cholecalciferol (vitamin D3) 1,000 UNIT tablet 500 mg PO DAILY RF: 0 calcium citrate-vitamin D3 1 EACH tablet 315 mg PO BID RF: 0 fluticasone furoate-vilanterol 1 EACH blister with device 1 ea IH DAILY RF: 0 lisinopril 20 mg Tablet 20 mg PO DAILY RF: 0 allopurinol 300 mg Tablet 300 mg PO BID RF: 0 albuterol 90 mcg/actuation Aerosol INHALATION RF: 0 zolpidem [Ambien] 10 mg Tablet 10 mg PO QHS PRN (Reason: Sleep) RF: 0 rosuvastatin [Crestor] 5 mg Tablet 5 mg PO DAILY RF: 0 Primary Care Provider: Sterling Tinoco Referrals: Sterling Tinoco MD [Primary Care Provider] - 1 Week Disposition Disposition: Home, Self Care
[2021-05-13 12:57] LABS: Absolute Lymphocyte Count 1.68 X10^3/uL (0.83-4.51); Absolute Neutrophil Count 7.4 X10^3/uL (2.0-7.7); Basophil# 0.09 X10^3/uL; Basophil% 0.8 % (0-1); Eosinophil# 0.38 X10^3/uL; Eosinophils% 3.5 % (0-5); Hemoglobin 11.7 g/dL (12.0-15.0); Lymphocyte # 1.68 X10^3/ul (0.83-4.51); Lymphocyte % 15.6 % (19-41); Mean Corp Hgb Conc 34.4 g/dL (32-36); Mean Corpuscular Hgb 34.8 pg (27.0-32.0); Mean Corpuscular Volume 101.2 fL (81-99); Mean Platelet Vol. 9.5 fl (6.2-12.0); Monocyte# 1.04 X10^3/uL; Monocyte% 9.7 % (0-10); NRBC Flagged by Analyzer 0 % (0-5); Neutrophil # 7.38 X10^3/uL (2.7-7.7); Neutrophil % 68.7 % (47-70); Platelet Count 393 K/mm3 (150-450); RBC Distribution Width SD 59.1 fl (35.1-43.9); Red Blood Count 3.36 M/mm3 (4.2-5.4); White Blood Count 10.8 K/mm3 (4.4-11.0)
[2021-05-13 13:18] VITALS: BP 147/91; PULSE 115; RESP 23; O2SAT 96
[2021-05-13 13:20] LABS: Anion Gap 11 (5-15); BUN 35 mg/dL (7-18); BUN/Creat Ratio 25.5 RATIO (10-20); Calcium,Total 9.2 mg/dL (8.5-10.1); Chloride 107 mmol/L (98-107); Creatinine, Serum 1.37 mg/dL (0.55-1.02); EST Glomerular Filtration Rate 42 mL/min (>60); Est Glom Filt Rate - Afr Amer 50 mL/min (>60); Estimated Creatinine Clearance 37.24 ml/min; Glucose 101 mg/dL (74-106); Potassium 4.1 mmol/L (3.5-5.1); Sodium Level 135 mmol/L (136-145); Thyroid Stim Hormone (TSH) 6.09 uIU/mL (0.358-3.74); Troponin-I HS 4 pg/mL (3.0-54.0)
[2021-05-13 13:56] LABS: T4 Free Direct 0.61 ng/dL (0.76-1.46)
[2021-05-13] MEDS: Metoprolol Tartrate 25 MG Tablet PO (14:28)
[2021-05-13 14:32] VITALS: BP 127/69; PULSE 72; RESP 15; O2SAT 98
[2021-05-13 14:32] LABS: T3 Total - Triiodothyronine 0.83 ng/mL (0.6-1.81)
== END 2021-05-13 14:32 | disposition home or self-care (01) ==
PROVIDERS: Emergency Provider Emergency Medicine; PCP Family Medicine; Visit Provider Emergency Medicine
DX: R00.0 Tachycardia, unspecified (principal); I10 Essential (primary) hypertension; E78.5 Hyperlipidemia, unspecified; K21.9 Gastro-esophageal reflux disease without esophagitis; Z79.899 Other long term (current) drug therapy; Z87.891 Personal history of nicotine dependence; Z86.16 Personal history of COVID-19
CPT/HCPCS: 71045; 80048; 84439; 84443; 84480; 84484; 85025; 85379; 93005; 99285; A4216

== ENCOUNTER 2021-05-23 11:45 | Outpatient (CLI) | payer BC, MEDICARE, SELFPAY ==
[2021-05-23 15:47] LABS: Urine Chloride 74 mmol/L (Not Establ.); Urine Sodium 70 mmol/L (Not Establ.)
== END 2021-05-23 23:59 | disposition home or self-care (01) ==
LOC: LABSPEC 11:46
PROVIDERS: PCP Family Medicine; Visit Provider Internal Medicine Nephrology
DX: E87.5 Hyperkalemia (principal)
CPT/HCPCS: 82436; 84133; 84300

== ENCOUNTER 2021-06-13 11:02 | Outpatient (CLI) | payer BC, MEDICARE, SELFPAY ==
[2021-06-13 13:04] LABS: Magnesium 1.6 mg/dL (1.6-2.6); Uric Acid 3.7 mg/dL (2.6-6.0)
[2021-06-13 13:15] LABS: Vitamin D,25 Hydroxy 52.8 ng/mL
== END 2021-06-13 23:59 | disposition home or self-care (01) ==
LOC: POLAB3 11:04
PROVIDERS: PCP Family Medicine; Visit Provider Internal Medicine Nephrology
DX: E87.5 Hyperkalemia (principal); E83.42 Hypomagnesemia; E79.0 Hyperuricemia without signs of inflammatory arthritis and tophaceous disease; E83.51 Hypocalcemia
CPT/HCPCS: 36415; 82306; 82533; 83735; 83970; 84550

== ENCOUNTER 2021-06-20 10:53 | Outpatient (CLI) | payer BC, MEDICARE, SELFPAY ==
[2021-06-20 12:55] LABS: Anion Gap 9 (5-15); BUN 25 mg/dL (7-18); BUN/Creat Ratio 22.3 RATIO (10-20); Calcium,Total 10.2 mg/dL (8.5-10.1); Chloride 107 mmol/L (98-107); Creatinine, Serum 1.12 mg/dL (0.55-1.02); EST Glomerular Filtration Rate 52 mL/min (>60); Est Glom Filt Rate - Afr Amer 63 mL/min (>60); Glucose 93 mg/dL (74-106); Potassium 4.2 mmol/L (3.5-5.1); Sodium Level 135 mmol/L (136-145)
== END 2021-06-20 23:59 | disposition home or self-care (01) ==
LOC: POLAB3 11:04
PROVIDERS: PCP Family Medicine; Visit Provider Internal Medicine Nephrology
DX: N25.9 Disorder resulting from impaired renal tubular function, unspecified (principal)
CPT/HCPCS: 36415; 80048

== ENCOUNTER → 2021-09-03 | Outpatient (CLI) | payer BC, SELFPAY ==
[2021-09-03 11:59] LABS: Rheumatoid Factor < 10.0 IU/mL (<15)
[2021-09-04 14:10] LABS: SJOGREN'S Anti-SS-A test < 0.2 AI (0.0-0.9); SJOGREN'S Anti-SS-B test < 0.2 AI (0.0-0.9)
[2021-09-04 20:41] LABS: ANTINUCLEAR ANTIBODIES DIRECT Negative (Negative)
== END | disposition home or self-care (01) ==
LOC: LAB 10:57
PROVIDERS: PCP Family Medicine; Referring Provider Otolaryngology Otolaryngology/Facial Plastic Surgery; Visit Provider Otolaryngology Otolaryngology/Facial Plastic Surgery
DX: K13.79 Other lesions of oral mucosa (principal); J02.9 Acute pharyngitis, unspecified
CPT/HCPCS: 36415; 86038; 86235; 86431; 87070

== ENCOUNTER → 2021-09-12 | Outpatient (CLI) | payer BC, SELFPAY ==
[2021-09-12 12:39] LABS: Anion Gap 9 (5-15); BUN 26 mg/dL (7-18); BUN/Creat Ratio 24.1 RATIO (10-20); Calcium,Total 10.2 mg/dL (8.5-10.1); Chloride 104 mmol/L (98-107); Creatinine, Serum 1.08 mg/dL (0.55-1.02); EST Glomerular Filtration Rate 55 mL/min (>60); Est Glom Filt Rate - Afr Amer 66 mL/min (>60); Glucose 96 mg/dL (74-106); Magnesium 1.5 mg/dL (1.6-2.6); Potassium 4.1 mmol/L (3.5-5.1); Sodium Level 138 mmol/L (136-145)
== END | disposition home or self-care (01) ==
LOC: POLAB3 10:17
PROVIDERS: PCP Family Medicine; Visit Provider Internal Medicine Nephrology
DX: N25.9 Disorder resulting from impaired renal tubular function, unspecified (principal); E83.42 Hypomagnesemia
CPT/HCPCS: 36415; 80048; 83735

== ENCOUNTER → 2021-11-22 | Outpatient (CLI) | payer BC, SELFPAY ==
[2021-11-22 10:53] LABS: Anion Gap 10 (5-15); BUN 23 mg/dL (7-18); BUN/Creat Ratio 19.7 RATIO (10-20); Calcium,Total 10.5 mg/dL (8.5-10.1); Chloride 108 mmol/L (98-107); Cholesterol 221 mg/dL (200); Creatinine, Serum 1.17 mg/dL (0.55-1.02); EST Glomerular Filtration Rate 50 mL/min (>60); Est Glom Filt Rate - Afr Amer 60 mL/min (>60); Free T3 2.8 pg/mL (2.18-3.98); Glucose 118 mg/dL (74-106); High Density Lipoprotein 87 mg/dL; Potassium 4.7 mmol/L (3.5-5.1); Sodium Level 139 mmol/L (136-145); T4 Free Direct 0.77 ng/dL (0.76-1.46); Thyroid Stim Hormone (TSH) 6.46 uIU/mL (0.358-3.74); Triglycerides 192 mg/dL; Very Low Density Lipoprotein 38 mg/dL (5-40)
== END | disposition home or self-care (01) ==
LOC: MFPLAB 08:46
PROVIDERS: PCP Family Medicine; Referring Provider Family Medicine; Visit Provider Family Medicine
DX: E78.2 Mixed hyperlipidemia (principal); E03.9 Hypothyroidism, unspecified; I10 Essential (primary) hypertension
CPT/HCPCS: 36415; 80048; 80061; 84439; 84443; 84481

== ENCOUNTER → 2022-03-13 | Outpatient (CLI) | payer BC, SELFPAY ==
[2022-03-13 13:43] LABS: Albumin, Serum 3.8 g/dL (3.2-5.0); BUN 16 mg/dL (7-18); BUN/Creat Ratio 16.9 RATIO (10-20); Calcium,Total 9.8 mg/dL (8.5-10.1); Chloride 104 mmol/L (98-107); Creatinine, Serum 0.94 mg/dL (0.55-1.02); EST Glomerular Filtration Rate 64 mL/min (>60); Est Glom Filt Rate - Afr Amer 77 mL/min (>60); Glucose 66 mg/dL (74-106); Magnesium 2.3 mg/dL (1.6-2.6); Phosphorus 2.4 mg/dL (2.5-4.9); Potassium 3.8 mmol/L (3.5-5.1); Sodium Level 139 mmol/L (136-145)
== END | disposition home or self-care (01) ==
LOC: POLAB3 09:17
PROVIDERS: PCP Family Medicine; Visit Provider Internal Medicine Nephrology
DX: N25.9 Disorder resulting from impaired renal tubular function, unspecified (principal); E83.42 Hypomagnesemia
CPT/HCPCS: 36415; 80069; 83735

== ENCOUNTER → 2022-05-19 | Outpatient (CLI) | payer BC, SELFPAY | END | disposition home or self-care (01) | LOC: LABSPEC 15:23 | PROVIDERS: PCP Family Medicine; Referring Provider Family Medicine; Visit Provider Family Medicine | DX: R30.0 Dysuria (principal) | CPT/HCPCS: 87086; 87088 ==

== ENCOUNTER → 2022-06-27 | Outpatient (CLI) | payer BC, SELFPAY ==
[2022-06-27 13:14] LABS: Anion Gap 10 (5-15); BUN 35 mg/dL (7-18); BUN/Creat Ratio 29.4 RATIO (10-20); Calcium,Total 9.9 mg/dL (8.5-10.1); Chloride 104 mmol/L (98-107); Creatinine, Serum 1.19 mg/dL (0.55-1.02); EST Glomerular Filtration Rate 49 mL/min (>60); Est Glom Filt Rate - Afr Amer 59 mL/min (>60); Free T3 1.9 pg/mL (2.18-3.98); Glucose 89 mg/dL (74-106); Potassium 4.7 mmol/L (3.5-5.1); Sodium Level 137 mmol/L (136-145); T4 Free Direct 0.82 ng/dL (0.76-1.46); Thyroid Stim Hormone (TSH) 1.21 uIU/mL (0.358-3.74)
== END | disposition home or self-care (01) ==
LOC: MFPLAB 08:47
PROVIDERS: PCP Family Medicine; Visit Provider Family Medicine
DX: I10 Essential (primary) hypertension (principal); E03.9 Hypothyroidism, unspecified
CPT/HCPCS: 36415; 80048; 84439; 84443; 84481

== ENCOUNTER → 2022-09-11 | Outpatient (CLI) | payer BC, SELFPAY ==
[2022-09-11 11:28] LABS: Anion Gap 8 (5-15); BUN 24 mg/dL (7-18); BUN/Creat Ratio 21.4 RATIO (10-20); Calcium,Total 9.9 mg/dL (8.5-10.1); Chloride 106 mmol/L (98-107); Creatinine, Serum 1.12 mg/dL (0.55-1.02); EST Glomerular Filtration Rate 52 mL/min (>60); Est Glom Filt Rate - Afr Amer 63 mL/min (>60); Glucose 97 mg/dL (74-106); Sodium Level 138 mmol/L (136-145)
== END | disposition home or self-care (01) ==
LOC: LAB 09:59
PROVIDERS: PCP Family Medicine; Referring Provider Internal Medicine Nephrology; Visit Provider Internal Medicine Nephrology
DX: E87.21 Acute metabolic acidosis (principal)
CPT/HCPCS: 36415; 80048

== ENCOUNTER → 2022-12-26 | Outpatient (CLI) | payer BC, SELFPAY ==
[2022-12-26 10:45] LABS: Vitamin D,25 Hydroxy 60.3 ng/mL
[2022-12-26 11:14] LABS: Anion Gap 8 (5-15); BUN 25 mg/dL (7-18); BUN/Creat Ratio 19.1 RATIO (10-20); Calcium,Total 9.9 mg/dL (8.5-10.1); Chloride 108 mmol/L (98-107); Cholesterol 192 mg/dL (200); Creatinine, Serum 1.31 mg/dL (0.55-1.02); EST Glomerular Filtration Rate 44 mL/min (>60); Est Glom Filt Rate - Afr Amer 53 mL/min (>60); Free T3 2.3 pg/mL (2.18-3.98); Glucose 106 mg/dL (74-106); High Density Lipoprotein 100 mg/dL; Magnesium 2.2 mg/dL (1.6-2.6); Potassium 4.2 mmol/L (3.5-5.1); Sodium Level 137 mmol/L (136-145); T4 Free Direct 0.98 ng/dL (0.76-1.46); Thyroid Stim Hormone (TSH) 2.35 uIU/mL (0.358-3.74); Triglycerides 142 mg/dL; Very Low Density Lipoprotein 28 mg/dL (5-40)
== END | disposition home or self-care (01) ==
LOC: MFPLAB 08:43
PROVIDERS: PCP Family Medicine; Visit Provider Family Medicine
DX: E03.9 Hypothyroidism, unspecified (principal); I10 Essential (primary) hypertension; E55.9 Vitamin D deficiency, unspecified
CPT/HCPCS: 36415; 80048; 80061; 82306; 83735; 84439; 84443; 84481

== ENCOUNTER 2023-02-23 08:37 | Outpatient (RCR) | payer BC, SELFPAY ==
--- NOTE | 2023-02-23 14:04 | HP.OTEVAL ---
Patient's Visit Information Visit Information Visit Information: VAMSI MARCUS is a 62 year old F, referred to Occupational Therapy by Dr. Sterling Tinoco MD, with a diagnosis of right thumb pain. Date of Evaluation: 02/23/23 Occupational Therapist: RUPINDER Lozano/oGkul, CHT Subjective Subjective: This 62 year old female was seen for OT eval with dx of right thumb pain- pt states she noticed pain about 8 weeks ago. pt states does have a wrist brace a thumb spica wrist brace- pt states does help at night. pt states she does not know what she did to cause pain/injury pt states she has increased difficulty with daily occupations- pt is right handed pt is retired - has dogs she will play fetch with . pt states she would like to use hand with ADLs without pain. ADLs Fasteners: Buttons and Zippers Kitchen: Open jars and Open bottle caps Miscellaneous: Use cell phone Pain right wrist/thumb: Current Pain Intensity: 0 Pain Intensity Range: 8 ROM Wrist: right 60/65 left 60/55 CMC: right 15* left 10* MP: right 60* left 60* IP: right 65 left 55* Radial Abduction: right 45 left 45* ROM Comments: pt demo functional ROM but pain with increase use Strength Supervisor Patching: right 40# left 40# Lateral Pinch: right 12# left 12# Tripod Pinch: right 10# left 10# Strength Comments: noted right MP and IP deviation with resistive pinch testing Sensation Thumb: right 3.84 left 2.83 Index: right 3.84 left 2.83 Middle: right 2.83 left 2.83 Ring: right 2.83 left 2.83 Little: right 2.83 left 2.83 Sensation Comments: pt reports right hand will go numb when driving Special Tests WHAT Test: right negative Quick DASH-Disab of Arm,Shoulder& Hand Quick DASH Score: 38.6350 Goals Goal:: pt will report right thumb pain no greater than 2/10 with use of right hand with ADLs and IADls by d.c Goal:: pt will demo a reduction on monofilament testing to 2.83 indicating increase sensation throughout the median nerve distribution by d/c Goal:: Pt will demo understanding of joint protection and ergonomics when performing BADLs and IADLs by d/c Pt will demo understanding of adaptive Equipment use to decrease stress on joints to allow pt to perform BADSL and IADLS at EMILIE level. Goal:: Pt will demo understanding of using supportive bracing 80% of workday/ADLS to decrease stress on tendon origin to allow healing and decrease pain by end of 2nd session. Goal:: pt will demo a reduction of 10 points on quick dash questioner by d/c Rehabilitation General Assessment: pt demo with thumb instability increasing pain with use of right hand with ADLs and IADLs. Pt would benefit from skilled OT services 1-2x week for 4 weeks to ed. pt on dx, ed, pt on joint protection daniel. thumb stabilization bracing to use with heavy ADL tasks- ad. eq. to avoid joint stress with ADLs. pt demo understanding and agree to POC. Rehabilitation Potential: Good Anticipated Interventions Anticipated Interventions: Strengthening, Triggerpoint Release, Modalities, Orthoses, Joint Protection/Energy Conservation, Ergonomic Education, Education re assistive Equipment, Education re Diagnosis and Home Program Visit Plan Frequency: 1-2x /Week Duration: 2-4 Weeks General Plan: ed. pt on joint protection daniel. ad. eq. to protect joints of thumb bracing for heavy tasks decrease pain TEXT: Thank you for the opportunity to evaluate your patient. For Medicare and Medicare HMO plans, please review the plan of care and approve it. It will need to be FAXED BACK to us at [phone] for Medicare purposes. Please let me know if there are questions or concerns regarding this plan of care. Physician Signature: Date:
--- NOTE | 2023-07-15 14:50 | HP.OT.NRP ---
Patient Information Patient Information: VAMSI MARCUS was seen in my office for initial evaluation on 02/23/23. The following Plan of Care was established for this patient: POC Established Initial Frequency: 1-2x /Week Initial Duration: 2-4 Weeks Anticipated Interventions Anticipated Interventions: Strengthening, Triggerpoint Release, Modalities, Orthoses, Joint Protection/Energy Conservation, Ergonomic Education, Education re assistive Equipment, Education re Diagnosis and Home Program Last Seen Last Seen: This patient was last seen in our office 02/23/23. Pertinent comments regarding their Occupational therapy will appear below: pt was seen for OT eval. no further apts were scheduled. Due to time lapse in services pt is d/c. At this point I will be discontinuing this patient from occupational therapy. I would be happy to see this patient again in the future if found appropriate by the physician. Thank you! Enriqueta Harrison, OTR/L, CHT
== END 2023-02-23 19:00 | disposition home or self-care (01) ==
LOC: OT 08:37
PROVIDERS: PCP Family Medicine; Visit Provider Family Medicine
DX: M79.644 Pain in right finger(s) (principal)
CPT/HCPCS: 97166; 97530

== ENCOUNTER → 2023-06-26 | Outpatient (CLI) | payer BC, SELFPAY ==
[2023-06-26 17:17] LABS: Anion Gap 12 (5-15); BUN 29 mg/dL (7-18); BUN/Creat Ratio 23.8 RATIO (10-20); Chloride 108 mmol/L (98-107); Cholesterol 191 mg/dL (200); Creatinine, Serum 1.22 mg/dL (0.55-1.02); EST Glomerular Filtration Rate 47 mL/min (>60); Est Glom Filt Rate - Afr Amer 57 mL/min (>60); Glucose 94 mg/dL (74-106); High Density Lipoprotein 103 mg/dL; Potassium 4.1 mmol/L (3.5-5.1); Sodium Level 138 mmol/L (136-145); T4 Free Direct 0.93 ng/dL (0.76-1.46); Thyroid Stim Hormone (TSH) 2.19 uIU/mL (0.358-3.74); Triglycerides 130 mg/dL; Very Low Density Lipoprotein 26 mg/dL (5-40)
== END | disposition home or self-care (01) ==
LOC: MFPLAB 08:42
PROVIDERS: PCP Family Medicine; Visit Provider Family Medicine
DX: I10 Essential (primary) hypertension (principal); E78.2 Mixed hyperlipidemia; E03.9 Hypothyroidism, unspecified
CPT/HCPCS: 36415; 80048; 80061; 84439; 84443; 84481

== ENCOUNTER → 2023-08-24 | Outpatient (CLI) | payer BC, SELFPAY ==
--- NOTE | 2023-08-24 09:49 | RAD_ITS ---
STUDY: X-RAY - RIGHT HAND REASON FOR EXAM: Female, 63 years old. Swelling. TECHNIQUE: 3 view(s) of the hand. COMPARISON: None. FINDINGS: Osteopenia. Diffuse mild osteoarthritic changes most marked at the first CMC joint. Normal soft tissues RAD/Hand Min 3 Views IMPRESSION: Osteopenia with diffuse mild osteoarthritic changes. No other abnormality identified. Electronically Signed: Zuhair Bruce MD at 12:44 EDT ,
== END | disposition home or self-care (01) ==
PROVIDERS: PCP Family Medicine; Referring Provider Family Medicine; Visit Provider Family Medicine
DX: M79.89 Other specified soft tissue disorders (principal)
CPT/HCPCS: 73130

== ENCOUNTER → 2023-09-10 | Outpatient (CLI) | payer BC, SELFPAY ==
[2023-09-10 10:20] LABS: Albumin, Serum 4.1 g/dL (3.2-5.0); BUN 41 mg/dL (7-18); BUN/Creat Ratio 25.3 RATIO (10-20); Calcium,Total 9.7 mg/dL (8.5-10.1); Chloride 105 mmol/L (98-107); Creatinine, Serum 1.62 mg/dL (0.55-1.02); EST Glomerular Filtration Rate 34 mL/min (>60); Est Glom Filt Rate - Afr Amer 41 mL/min (>60); Glucose 101 mg/dL (74-106); Magnesium 2.4 mg/dL (1.6-2.6); Phosphorus 3.1 mg/dL (2.5-4.9); Potassium 4.5 mmol/L (3.5-5.1); Sodium Level 134 mmol/L (136-145)
== END | disposition home or self-care (01) ==
LOC: LAB 09:43
PROVIDERS: PCP Family Medicine; Referring Provider Internal Medicine Nephrology; Visit Provider Internal Medicine Nephrology
DX: N25.9 Disorder resulting from impaired renal tubular function, unspecified (principal); E87.21 Acute metabolic acidosis; E83.42 Hypomagnesemia
CPT/HCPCS: 36415; 80069; 83735

== ENCOUNTER → 2023-09-30 | Outpatient (CLI) | payer BC, SELFPAY ==
[2023-09-30 12:54] LABS: Albumin, Serum 3.8 g/dL (3.2-5.0); BUN 17 mg/dL (7-18); BUN/Creat Ratio 17.3 RATIO (10-20); Calcium,Total 9.7 mg/dL (8.5-10.1); Chloride 109 mmol/L (98-107); Creatinine, Serum 0.98 mg/dL (0.55-1.02); EST Glomerular Filtration Rate 60 mL/min (>60); Est Glom Filt Rate - Afr Amer 73 mL/min (>60); Glucose 108 mg/dL (74-106); Phosphorus 2.6 mg/dL (2.5-4.9); Potassium 3.6 mmol/L (3.5-5.1); Sodium Level 138 mmol/L (136-145)
== END | disposition home or self-care (01) ==
LOC: MTLAB 10:28
PROVIDERS: PCP Family Medicine; Referring Provider Internal Medicine Nephrology; Visit Provider Internal Medicine Nephrology
DX: N17.9 Acute kidney failure, unspecified (principal)
CPT/HCPCS: 36415; 80069

== ENCOUNTER → 2023-10-15 | Outpatient (CLI) | payer BC, SELFPAY ==
[2023-10-15 13:03] LABS: Cholesterol 186 mg/dL (200); High Density Lipoprotein 99 mg/dL; Thyroid Stim Hormone (TSH) 3.89 uIU/mL (0.358-3.74); Triglycerides 122 mg/dL; Very Low Density Lipoprotein 24 mg/dL (5-40)
== END | disposition home or self-care (01) ==
LOC: MFPLAB 09:45
PROVIDERS: PCP Family Medicine; Visit Provider Family Medicine
DX: E03.9 Hypothyroidism, unspecified (principal); I10 Essential (primary) hypertension
CPT/HCPCS: 36415; 80061; 84443

== ENCOUNTER → 2023-10-28 | Outpatient (CLI) | payer BC, SELFPAY ==
[2023-10-28 15:36] LABS: Albumin, Serum 3.8 g/dL (3.2-5.0); BUN 29 mg/dL (7-18); BUN/Creat Ratio 21.5 RATIO (10-20); Calcium,Total 9.9 mg/dL (8.5-10.1); Chloride 102 mmol/L (98-107); Creatinine, Serum 1.35 mg/dL (0.55-1.02); EST Glomerular Filtration Rate 42 mL/min (>60); Est Glom Filt Rate - Afr Amer 51 mL/min (>60); Glucose 99 mg/dL (74-106); Phosphorus 3.1 mg/dL (2.5-4.9); Potassium 4.6 mmol/L (3.5-5.1); Sodium Level 132 mmol/L (136-145)
== END | disposition home or self-care (01) ==
LOC: MFPLAB 11:24
PROVIDERS: PCP Family Medicine; Visit Provider Internal Medicine Nephrology
DX: N17.9 Acute kidney failure, unspecified (principal)
CPT/HCPCS: 36415; 80069

== ENCOUNTER → 2023-12-31 | Outpatient (CLI) | payer BC, SELFPAY ==
[2023-12-31 17:53] LABS: Albumin, Serum 3.6 g/dL (3.2-5.0); BUN 26 mg/dL (7-18); BUN/Creat Ratio 19.5 RATIO (10-20); Chloride 109 mmol/L (98-107); Creatinine, Serum 1.33 mg/dL (0.55-1.02); EST Glomerular Filtration Rate 43 mL/min (>60); Est Glom Filt Rate - Afr Amer 52 mL/min (>60); Glucose 122 mg/dL (74-106); Phosphorus 3.9 mg/dL (2.5-4.9); Potassium 3.9 mmol/L (3.5-5.1); Sodium Level 139 mmol/L (136-145)
== END | disposition home or self-care (01) ==
LOC: MTLAB 14:14
PROVIDERS: PCP Family Medicine; Referring Provider Internal Medicine Nephrology; Visit Provider Internal Medicine Nephrology
DX: N17.9 Acute kidney failure, unspecified (principal)
CPT/HCPCS: 36415; 80069

== ENCOUNTER → 2024-01-18 | Outpatient (CLI) | payer BC, SELFPAY ==
[2024-01-18 13:22] LABS: Free T3 1.9 pg/mL (2.18-3.98); T4 Free Direct 0.97 ng/dL (0.76-1.46)
== END | disposition home or self-care (01) ==
PROVIDERS: PCP Family Medicine; Referring Provider Family Medicine; Visit Provider Family Medicine
DX: E03.9 Hypothyroidism, unspecified (principal)
CPT/HCPCS: 36415; 84439; 84443; 84481

== ENCOUNTER → 2024-02-02 | Outpatient (CLI) | payer BC, SELFPAY ==
--- OUTSIDE RECORDS SUMMARY | 2024-02-02 13:50 | XMS RPT_ITS | CCD ---
Author Organization [facility] Inform ion Partnership [facility] Care Team Providers Care Admitting Supervisor Name Role Phone Sterling Ceja MD Primary Care Provider [phone] STERLING CEJA Primary Care Unavailable VARINDER LUCIO Attending Unavail able STERLING CEJA Primary Care Unavailable Sterling Ceja MD Primary Care Provider Allergies Allergy Classification Reported Allergen(s) Allergy Type Date of Onset Reaction(s) Facility (3 sources) [facility]; Translations: [BALSAM DEMETRI] Drug Allergy 01-03-2009 Itching [facility] Work Phone: Medications Current Medications Medication Drug Class(es) Dates Sig (Normalized) Sig (Original) [id number] 200 actuat albuterol 0.09 mg/actuat metered dose inhaler (2 sources) beta2-Adrenergic Agonist Start: 11-15-2014 PROAIR HFA 90 mcg/actuation inhaler allopurinol 300 mg oral tablet (2 sources) Xanthine Oxidase Inhibitor take 1 tablet by mouth once daily allopurinol (ZYLOPRIM) 300 mg tablet Take 300 mg by mouth once daily. 0 Active Comment on above: Take 300 mg by mouth once daily. amLODIPine 5 mg oral tablet (2 sources) Dihydropyridine Calcium Channel Stephanie Start: 12-28-2020 take 1 tablet by mouth once daily amLODIPine (NORVASC) 5 mg tablet Take 5 mg by mouth once daily. 0 12/28/2020 Active Comment on above: Take 5 mg by mouth o nce daily. Calcium (1 source) Phosphate Binder, Calcium CALCIUM ORAL Take by mouth. 0 Active clobetasol propionate 0.0005 mg/mg topical ointment (2 sources) Corticosteroid Start: 04-01-2023 End: 09-01-2023 clobetasol (TEMOVATE) 0.05 % ointment Apply 1 application to affected area two times a day. TO AFFECTED AREA. 30 g 1 09/01/2023 Active 30 actuat fluticasone furoate 0.1 mg/actuat / vilanterol 0.025 mg/actuat dry powder inhaler (2 sources) Corticosteroid, beta2-Adrenergic Agonist fluticasone-vilant francisco javier (BREO ELLIPTA) 100-25 mcg/dose inhaler Inhale 1 Inhalation as instructed once daily. 0 Active Comment on above: Inhale 1 Inhalation as instructed once daily. gemfibrozil 600 mg oral tablet (2 sources) Peroxisome Proliferator Receptor alpha Agonist Start: 11-07-2005 GEMFIBROZIL 600 MG TAB Lactobacillus acidophilus (1 source) Lactobacillus acidophilus (PROBIOTIC ORAL) Take by mouth. 0 Active levothyroxine sodium 0.05 mg oral capsule (1 source) l-Thyroxine take 1 capsule by mouth once daily before breakfast levothyroxine 50 mcg cap Take 50 mcg by mouth daily before breakfast. 0 Active lisinopril 20 mg oral tablet (2 sources) Angiotensin Converting Enzyme Inhibitor take 1 tablet by mouth once daily lisinopril (ZESTRIL, PRINIVIL) 20 mg tablet Take 20 mg by mouth once daily. 0 Active Comment on above: Take 20 mg by mouth once daily. 24 hr loratadine 10 mg / pseudoephedrine sulfate 240 mg extended release oral tablet (2 sources) alpha-Adrenergic Agonist take 1 tablet by mouth once daily loratadine-pseudoe phedrine ER (LORATA-D) 10-240 mg Tb24 Take 1 tablet by mouth once daily. 0 Active Comment on above: Take 1 tablet by [facility] once daily. metoprolol tartrate 50 mg oral tablet (1 source) beta-Adrenergic Stephanie take 1 tablet by mouth twice daily metoprolol tartrate, short acting, (LOPRESSOR) 50 mg tablet Take 50 mg by mouth two times a day. 0 Active nortriptyline 50 mg oral capsule (2 sources) Tricyclic Antidepressant take 1 capsule by mouth once daily at bedtime nortriptyline (PAMELOR) 50 mg capsule Take 50 mg by mouth daily at bedtime. 0 Active Comment on above: Take 50 mg by mouth daily at bedtime. omeprazole 20 mg delayed release oral capsule (2 sources) Proton Pump Inhibitor Start: 11-23-2006 take 1 capsule by mouth once daily omeprazole 20 mg ORAL CpDR Take one(1) capsule daily. 0 11/23/2006 Active Comment on above: Take one(1) capsule daily. rosuvastatin calcium 5 mg oral tablet (2 sources) HMG-CoA Reductase Inhibitor take 1 tablet by mouth once daily rosuvastatin (CRESTOR) 5 mg tablet Take 5 mg by mouth once daily. 0 Active Comment on above: Take 5 mg by mouth o nce daily. zolpidem tartrate 10 mg oral tablet (2 sources) gamma-Aminobutyric Acid-ergic Agonist Start: 02-03-2015 zolpidem (AMBIEN) 10 mg tab Completed/Discontinued Medications Medication Drug Class(es) Dates Sig (Normalized) Sig (Original) amLODIPine 10 mg / benazepril hydrochloride 40 mg oral capsule (1 source) Dihydropyridine Calcium Channel Stephanie, Angiotensin Converting Enzyme Inhibitor Start: 11-08-19 06 LOTREL 10 MG-40 MG CAP atorvastatin 10 mg oral tablet (1 source) HMG-CoA Reductase Inhibitor take 1 tablet by mouth once daily atorvastatin (LIPITOR) 10 mg ORAL tablet Take 10 mg by mouth once daily. 0 Active Comment on above: Take 10 mg by mouth once daily. calcitriol 0.15239 mg oral capsule (1 source) Vitamin D3 Analog Start: 02-04-20 15 calcitriol (ROCALTROL) 0.25 mcg capsule carvedilol 3.125 mg oral tablet (1 source) alpha-Adrenergic Stephanie, beta-Adrenergic Stephanie Start: 01-22-20 15 carvedilol (COREG) 3.125 mg tablet 120 actuat fluticasone propionate 0.22 mg/actuat metered dose inhaler (1 source) Corticosteroid Start: 11-24-19 15 FLOVENT HFA 220 mcg/actuation inhaler hydroCHLOROthiazide 25 mg oral tablet (1 source) Thiazide Diuretic Start: 02-04-20 15 hydrochlorothiazide (HYDRODIURIL, ESIDRIX) 25 mg tablet Problems Active Problems Problem Classification Problem Date Documented Da te Episodic/Chronic Menopausal disorders (2 sources) Atrophic vaginitis; Translations: [Postmenopausal atrophic vaginitis] Onset: 02-25-2013 02-25-2013 Chronic Other screening for suspected conditions (not mental disorders or infectious disease) (1 source) Encounter for screening mammogram for malignant neoplasm of breast; Translations: [Encounter for screening mammogram for malignant neoplasm of breast] Onset: 04-01-2023 Episodic Past or Other Problems Problem Classification Problem Date Documented Da te Episodic/Chronic Allergic reactions (2 sources) Contact dermatitis; Translations: [Contact dermatitis and other eczema] Onset: 11-23-2006 11-23-2006 Episodic Intestinal infection (2 sources) Clostridium difficile colitis; Translations: [Enterocolitis due to Clostridium difficile, not specified as recurrent] Onset: 01-23-2012 01-23-2012 Episodic Results Test Name Value Interpretation Reference Range Facil ity CNOVon 04-01-2023 CNOV Office Visit (OBGYWM ) AMRITVIOLET Alice ([id number]) 1960 F Date Time Provider Department 04/01/23 2:30 PM VARINDER LUCIO OBGYWM During your visit today, we recorded the following information about you: Blood pressure Weight Height 120/80 91.4 kg 1.626 m Varinder Lucio MD 04/01/2023 2:58 PM Signed Pharm Spec offered: Patient declines. Lazo is a 62 year old who presents for an annual gynecologic exam without complaints. Occasional irritation on vulva- uses topical hydrocortisone which relives irritation. Postmenopausal: Yes HRT use: No. Last Pap: 01/17/2021 normal HPV: 01/11/2021 negative History of abnormal pap: No Last mammogram: 2022 normal History of abnormal mammogram: No Sexually active: Yes History of STDS: None Patient concerns for STD exposure: No. Hot flashes: Yes Night sweats: No Exercise: not routine Diet: balanced OB History T0 L0 SAB0 IAB0 Ectopic0 Multiple0 Live Births0 Enologist History LMP: 08/08/2008, Postmenopausal Age at Menarche: Age at First : Age at Menopause: Enologist History Comments: Sexual Activity: Not Currently; Male Contraception: Tubal Ligation PAST MEDICAL HISTORY Diagnosis Date Asthma Contact dermatitis and other eczema, due to unspecified cause Contact dermatitis Unspecified hypertensive heart disease without heart failure PAST SURGICAL HISTORY Procedure Laterality Date LIG/TRNSXJ FLP TUBE ABDL/VAG APPR UNI/BI FAMILY HISTORY Problem Relation Age of Onset Heart Mother Heart Father Diabetes Sister SOCIAL HISTORY Social History Tobacco Use Smoking status: Former Packs/day: 0.50 Years: 20.00 Additional pack years: 0.00 Total pack years: 10.00 Types: Cigarettes Quit date: 06/15/2014 Years since quittin.8 Smokeless tobacco: Never Vaping Use Vaping Use: Never used Substance Use Topics Alcohol use: Yes Comment: few drinks on weekends Drug use: No REVIEW OF SYSTEMS Abdomen: No abdominal pain, nausea, vomiting, diarrhea, or constipation. No bloating, early satiety, indigestion, or increased flatulence. Bladder: No dysuria, gross hematuria, urinary frequency, urinary urgency, or incontinence Breast: No breast lumps, nipple d/c, overlying skin changes, redness or skin retraction Allergies and current medication updated:Yes EXAM: BP 120/80 Ht 5' 4 (1.63m) Wt 201 lb 6.4 oz (91.4kg) LMP 08/08/2008 BMI 34.55 kg/(m2). GENERAL: pleasant, female in no apparent distress HEENT: Normocephalic, atraumatic, mucus membranes moist, and no lesions NECK: Supple, full range of motion, no adenopathy, and thyroid normal DERMATOLOGY: Normal, without lesions, non-icteric, and non-hirsute BREAST: soft, non-tender, symmetric, no dominant mass, normal nipple-areolar complex, no lymphadenopathy, and no nipple discharge ABDOMEN: soft, non-tender, and no masses PELVIC: normal Bartholin's glands, urethra, Bearden's glands, no vulvar lesions, no cervical lesions, good vaginal support, physiologic discharge present, small erythema on superior aspect and around anus. BIMANUAL: uterus normal size, shape and consistency, no adnexal masses, and non-tender RECTOVAGINAL: deferred. NEURO: alert and oriented x3,exam grossly non-focal EXTREMITIES: normal ASSESSMENT/PLAN: 1) Health maintenance: Pap/HPV up to date. Mammogram ordered Mammogram up to date Nutrition, exercise and routine health maintenance exams reviewed. Colon cancer screening: patient to discuss with PCP- declines ordering today 2) Follow up one year or sooner as needed 3) clobetasol ordered for vulvar dermatitis - discussed vulvar hygiene Varinder May MD Allergies As of Date: 04/01/2023 Noted Allergy Reaction BALSAM OF DEMETRI (BALSAM DEMETRI) 01/03/2009 9 - Itching Comments: Redness and peeling of hands Date Reviewed: 04/01/2023 Reviewed by: Johana Lopez MA - Fully Assessed Reason for Visit: Well Woman [[id number]] Primary Visit Diagnosis:Encounter for gynecological examination (general) (routine) without abnormal findings [Z01.419] Other Visit Diagnosis:Encounter for screening mammogram for malignant neoplasm of breast [Z12.31] Order(s):ISHMAEL SCREENING W GO [[id number]] Order #: [id number] FUTURE clobetasol (TEMOVATE) 0.05 % ointmentApply 1 application to affected area two times a day. TO AFFECTED AREA.Disp: 30 gRfl: 1 Prescriptions as of 04/01/2023 - metoprolol tartrate, short acting, (LOPRESSOR) 50 mg tablet Take 50 mg by mouth two times a day. - levothyroxine 50 mcg cap Take 50 mcg by mouth daily before breakfast. - CALCIUM ORAL Take by mouth. - Lactobacillus acidophilus (PROBIOTIC ORAL) Take by mouth. - clobetasol (TEMOVATE) 0.05 % ointment Apply 1 application to affected area two times a day. TO AFFECTED AREA. - amLODIPine (NORVASC) 5 mg tablet Take 5 (more content not included)... Normal [facility] ISHMAEL SCREENING W TOMOon 09-10 ISHMAEL SCREENING W GO * * *Final Report* * * DATE OF EXAM: Sep 10 2022 11:11AM WRW [id number] - ISHMAEL SCREENING W GO / PROCEDURE REASON: z04.05 * * * * Physician Interpretation * * * * RESULT: #[id number] - [facility] SCREENING W GO BILATERAL DIGITAL SCREENING MAMMOGRAM TOMOSYNTHESIS WITH CAD: 09/10/2022 HISTORY: Z12.31 /Screening Mammogram with GO - patient reports NO breast symptoms /priors available for comparison. RESULT: TECHNIQUE: The study was acquired using full field digital technology and interpreted from soft copy. Digital Breast Tomosynthesis (DBT) images were obtained and used to assist in the interpretation of this examination. Current study was also evaluated with a Computer Aided Detection (CAD). Comparison is made to exams dated: 2016 mammogram, 01/28/2018 mammogram - [facility], 03/09/2018 mammogram, 09/14/2018 mammogram, and 03/09/2018 ultrasound - [facility]. There are scattered fibroglandular elements in both breasts. No significant masses, calcifications, or other findings are seen in either breast. There has been no significant interval change. IMPRESSION: NEGATIVE There is no mammographic evidence of malignancy. A 1 year screening mammogram is recommended. The exam was reviewed by a staff physician. Nica ellsworth am/solange:09/10/2022 11:56:43 copy to: Michelle LENZ, ph: [phone] Supervisor [employer](s): RT Elias(R)(M), [facility] letter sent: Normal over 40 Mammogram BI-RADS: 1 Negative Multiple national specialty organizations have released breast cancer screening guidelines for women at average risk for developing breast cancer - guidelines that are based on both evidence and opinion, yet differ on when to start and how often to screen for breast cancer. With representation from Breast Imaging, Internal Medicine, Women's Health, Family Medicine, and Medical/Surgical Oncology, the [facility] has carefully reviewed the data and reached the following consensus: 1) All women should engage in shared decision-making with their providers to decide when to start and how often to screen; 2) All women should have the opportunity to start screening mammography at age 40; 3) For women ages 45-55, we recommend annual screening mammograms; 4) For women ages 55 and over, we support both the transition from an annual to a biennial interval if this aligns more with patient's values and preferences, or continuation with annual screening; 5) All women should discuss with their providers when to stop screening mammograms. Instrument Worker: Solange Transcribe Date/Time: Sep 10 2022 10:55A Dictated by: OPAL MARTINEZ MD This examination was interpreted and the report reviewed and electronically signed by: NICA BARRIGA MD on Sep 10 2022 11:56AM EST [id number] Normal [facility] ic Encounters Encounter Date Encounter Type Care Provider Facility Start: 09-01-2023 Refill Varinder Pritchard MD Work Phone: OB/Gynecology Start: 04-01-2023 End: 04-02-2023 ambulatory STERLING CEJA Facility:[facility] Start: 04-01-2023 Encounter for gynecological examination (general) (routine) without abnormal findings VARINDER PRITCHARD [facility] Start: 09-10-2022 End: 09-10-2022 ambulatory STERLING CEJA Facility:[facility] Start: 09-10-2022 End: 09-10-2022 Subsequent hospital visit by physician [facility] Mammogram Procedures Date Procedure Procedure Detail Performing Clinician Start: 09-10-2022 Screening digital br east tomosynthesis bi [facility] Provider Plan of Treatment Date Care Activity Detail Author Start: 01-09-2026 HPV Testing HPV Testing [facility] Start: 01-09-2026 Pap Testing Pap Testing [facility] Start: 01-09-2026 Screening for malign ant neoplasm of cervix [facility] Start: 09-11-2023 Mammography Mammogram Screening [facility] Start: 09-11-2023 Screening for malign ant neoplasm of breast Mammogram Screening [facility] Start: 04-06-2023 Behavioral Health Screening Behavioral Health Screening [facility] Start: 12-05-2022 Covid-19 Vaccine ( season) Covid-19 Vaccine ( season) [facility] Start: 12-05-2022 Influenza vaccination Influenza Vacc ine (#1) [facility] Start: 04-06-2022 Depression Assessment Depression Ass essment [facility] Start: 2019 RSV Vaccine (1 - 1-d ose 60+ series) RSV Vaccine (1 - 1-dose 60+ series) [facility] Start: 07-27-2009 Shingrix Vaccine (1 of 2) Shingrix V accine (1 of 2) [facility] Start: 07-27-2004 Cologuard (FIT-DNA) Cologuard (FIT-D NA) [facility] Start: 07-27-2004 Colonoscopy Colonoscopy [facility] Start: 07-27-2004 Colorectal Cancer Screening Colorectal Cancer Screening [facility] Start: 07-27-[address] Colonography [facility] Start: 07-27-2004 Diabetes Screening Diabetes Screenin g [facility] Start: 07-27-2004 Fecal Occult Blood Fecal Occult Bloo d [facility] Start: 07-27-2004 Lipid 1996 panel - S domitila or Plasma Lipid Screening [facility] Start: 07-27-2004 Lipid panel Lipid Screening [facility] Start: 07-27-2004 Screening for malign ant neoplasm of colon [facility] Start: 07-27-[address] [facility] Start: 07-27-1978 Urine microalbumin profile DTa P,Tdap,Td Vaccine (1 - Tdap) [facility] Start: 07-27-1977 Hepatitis C Screening Hepatitis C [facility] Start: 07-27-1977 Hepatitis C screening Hepatitis C [facility] Start: 07-27-1977 HIV Screening HIV Screening [facility] Start: 07-27-1977 HIV screening HIV Screening [facility] Immunizations Immunization Date Immunization Notes Care Provider Fa gabriel 12-30-2021 influenza virus vacc ine, unspecified formulation Screen Wstr [facility] Payers Date Payer Category Payer Unknown DRAKE MARTIR BYRD PPO [id number] 2018-Present [phone] [facility] [id number] [place] [address] PPO [id number] 2018 Unknown [id number] Social History Date Type Detail Facility Start: 02-15-2015 End: 04-01-2023 Tobacco smoking status NHIS Ex-smoker [facility] End: 06-15-2014 History of tobacco use Current smoker [facility] End: 06-15-2014 History of tobacco use Cigarette Smoker [facility] Start: 02-15-2015 End: 04-01-2023 Cigarettes smoked current (pack per day) - Reported 0.5 [facility] Start: 02-15-2015 End: 04-01-2023 Tobacco use and exposure Smokeless tobacco non-user [facility] Start: 01-18-2021 End: 04-01-2023 Alcohol intake Current drinker of alcohol (finding) [facility] Start: 01-18-2021 End: 04-01-2023 Tobacco use panel [facility] National Score (1-10 0), lower number is lower risk Not on file [facility] Start: 02-25-2013 Alcohol Comment few drinks on weeken ds [facility] Start: 1960 Sex Assigned At Not on file C [facility] Telephone encounter Note 09-01-2023 Telephone Encounter - Emma Mcdowell RN - 09/01/2023 3:13 PM EDT Note Date & Type Note Facility 09-01-2023 Telephone encount er Note Patient calling requesting a refill on her Clobetasol Rx. Patient last seen in office on 04/01/23 for annual exam. Please file if appropriate. Will only call patient back if there is a problem. Emma Mcdowell RN [facility] Note 09-01-2023 Telephone Encounter - Emma Mcdowell RN - 09/01/2023 3:13 PM EDT Note Date & Type Note Facility 09-01-2023 Miscellaneous Notes Formattin g of this note might be different from the original. Patient calling requesting a refill on her Clobetasol Rx. Patient last seen in office on 04/01/23 for annual exam. Please file if appropriate. Will only call patient back if there is a problem. Emma Mcdowell RN documented in this encounter [facility] Progress note 04-01-2023 Note Date & Type Note Facility 04-01-2023 Note HNO ID: [id number] Author: Varinder Lucio MD Service: ? Author Type: Physician Type: Progress Notes Filed: 04/01/2023 2:58 PM Note Text: Pharm Spec offered: Patient declines. Violet is a 62 year old who presents for an annual gynecologic exam without complaints. Occasional irritation on vulva- uses topical hydrocortisone which relives irritation. Postmenopausal: Yes HRT use: No. Last Pap: 01/17/2021 normal HPV: 01/11/2021 negative History of abnormal pap: No Last mammogram: 2022 normal History of abnormal mammogram: No Sexually active: Yes History of STDS: None Patient concerns for STD exposure: No. Hot flashes: Yes Night sweats: No Exercise: not routine Diet: balanced OB History T0 L0 SAB0 IAB0 Ectopic0 Multiple0 Live Births0 Enologist History LMP: 08/08/2008, Postmenopausal Age at Menarche: Age at First : Age at Menopause: Enologist History Comments: Sexual Activity: Not Currently; Male Contraception: Tubal Ligation PAST MEDICAL HISTORY Diagnosis Date Asthma Contact dermatitis and other eczema, due to unspecified cause Contact dermatitis Unspecified hypertensive heart disease without heart failure PAST SURGICAL HISTORY Procedure Laterality Date LIG/TRNSXJ FLP TUBE ABDL/VAG APPR UNI/BI FAMILY HISTORY Problem Relation Age of Onset Heart Mother Heart Father Diabetes Sister SOCIAL HISTORY Social History Tobacco Use Smoking status: Former Packs/day: 0.50 Years: 20.00 Additional pack years: 0.00 Total pack years: 10.00 Types: Cigarettes Quit date: 06/15/2014 Years since quittin.8 Smokeless tobacco: Never Vaping Use Vaping Use: Never used Substance Use Topics Alcohol use: Yes Comment: few drinks on weekends Drug use: No REVIEW OF SYSTEMS Abdomen: No abdominal pain, nausea, vomiting, diarrhea, or constipation. No bloating, early satiety, indigestion, or increased flatulence. Bladder: No dysuria, gross hematuria, urinary frequency, urinary urgency, or incontinence Breast: No breast lumps, nipple d/c, overlying skin changes, redness or skin retraction Allergies and current medication updated:Yes EXAM: BP 120/80 Ht 5' 4 (1.63m) Wt 201 lb 6.4 oz (91.4kg) LMP 08/08/2008 BMI 34.55 kg/(m2). GENERAL: pleasant, female in no apparent distress HEENT: Normocephalic, atraumatic, mucus membranes moist, and no lesions NECK: Supple, full range of motion, no adenopathy, and thyroid normal DERMATOLOGY: Normal, without lesions, non-icteric, and non-hirsute BREAST: soft, non-tender, symmetric, no dominant mass, normal nipple-areolar complex, no lymphadenopathy, and no nipple discharge ABDOMEN: soft, non-tender, and no masses PELVIC: normal Bartholin's glands, urethra, Bearden's glands, no vulvar lesions, no cervical lesions, good vaginal support, physiologic discharge present, small erythema on superior aspect and around anus. BIMANUAL: uterus normal size, shape and consistency, no adnexal masses, and non-tender RECTOVAGINAL: deferred. NEURO: alert and oriented x3,exam grossly non-focal EXTREMITIES: normal ASSESSMENT/PLAN: 1) Health maintenance: Pap/HPV up to date. Mammogram ordered Mammogram up to date Nutrition, exercise and routine health maintenance exams reviewed. Colon cancer screening: patient to discuss with PCP- declines ordering today 2) Follow up one year or sooner as needed 3) clobetasol ordered for vulvar dermatitis - discussed vulvar hygiene Varinder May MD [facility] Progress note 09-10-2022 Note Date & Type Note Facility 09-10-2022 Note HNO ID: [id number] Author: Chuy Perez Service: ? Author Type: Mimeographer Type: Progress Notes Filed: 09/10/2022 11:09 AM Note Text: Radiology Service Progress Note PATIENT NAME: Violet Saenz DATE OF SERVICE: September 10, 2022 TIME: 10:28 AM PATIENT IDENTITY VERIFICATION COMPLETED USING TWO (2) IDENTIFIERS: Name and Date of confirmed by patient verbally. FALL SCREENING: Has the patient had 2 falls in the last year or 1 fall with injury or currently using an Ambulatory Assistive Device (Walker, Cane, Wheelchair, Crutches, etc.)? No PATIENT GENDER DATA: Female. status: : No status: NO. PATIENT RELEVANT IMPLANT DATA REVIEWED: Not Applicable RADIOLOGY DEPARTMENT: Mammography PERIPHERAL IV DATA: Not applicable SIGNED BY: Chuy Perez September 10, 2022 10:28 AM [facility] History of Present illness Narrative 09-10-2022 Taylor Lemos Mammo Tech - 09/10/2022 10:30 AM EDT Note Date & Type Note Facility 09-10-2022 History of Presen t illness Narrative Radiology Service Progress Note PATIENT NAME: Violet Saenz DATE OF SERVICE: September 10, 2022 TIME: 10:28 AM PATIENT IDENTITY VERIFICATION COMPLETED USING TWO (2) IDENTIFIERS: Name and Date of confirmed by patient verbally. FALL SCREENING: Has the patient had 2 falls in the last year or 1 fall with injury or currently using an Ambulatory Assistive Device (Walker, Cane, Wheelchair, Crutches, etc.)? No PATIENT GENDER DATA: Female. status: : No status: NO. PATIENT RELEVANT IMPLANT DATA REVIEWED: Not Applicable RADIOLOGY DEPARTMENT: Mammography PERIPHERAL IV DATA: Not applicable SIGNED BY: Chuy Perez September 10, 2022 10:28 AM documented in this encounter [facility] Summary Purpose Family History No Family History Records Found Advance Directives No Advanced Directives Records Found Additional Source Comments Source Comments (unrecognize d section and content) In the event this informatio n is protected by the Federal Confidentiality of Alcohol and Drug Abuse Patient Records regulations: The Federal rules restrict any use of the information to criminally investigate or prosecute any alcohol or drug abuse patient.[facility] the event this information is protected by the Federal Confidentiality of Alcohol and Drug Abuse Patient Records regulations: The Federal rules restrict any use of the information to criminally investigate or prosecute any alcohol or drug abuse patient.[facility] Care Teams (unrecognized sec tion and content) Admitting Supervisor Relationship Specialty Start Date End Date Sterling Ceja MD PCP - General Family Medicine 02/25/13 Admitting Supervisor Relationship Specialty Start Date End Date Sterling Ceja MD PCP - General Family Medicine 02/25/13 INFORMATION SOURCE (unrecogn ized section and content) DATE CREATED AUTHOR 04/06/2023 [facility] FOR RECORDS PERTAINING TO PATIENTS WHO ARE OR HAVE BEEN ENROLLED IN A CHEMICAL DEPENDENCY/SUBSTANCEABUSE PROGRAM, SOME INFORMATION MAY BE OMITTED. This clinical summary was aggregated from multiple sources. Caution should be exercised in using it in the provision of clinical care. This summary normalizes information from multiple sources, and as a consequence, information in this document may materially change the coding, format and clinical context of patient data. In addition, data may be omitted in some cases. CLINICAL DECISIONS SHOULD BE BASED ON THE PRIMARY CLINICAL RECORDS. [facility] [employer] [facility]. provides no warranty or guarantee of the accuracy or completeness of information in this document.
[2024-02-02 15:37] LABS: Albumin, Serum 3.6 g/dL (3.2-5.0); BUN 15 mg/dL (7-18); BUN/Creat Ratio 14.9 RATIO (10-20); Calcium,Total 10.1 mg/dL (8.5-10.1); Chloride 105 mmol/L (98-107); Creatinine, Serum 1.01 mg/dL (0.55-1.02); EST Glomerular Filtration Rate 59 mL/min (>60); Est Glom Filt Rate - Afr Amer 71 mL/min (>60); Glucose 97 mg/dL (74-106); Phosphorus 3.9 mg/dL (2.5-4.9); Potassium 4.2 mmol/L (3.5-5.1); Sodium Level 138 mmol/L (136-145)
== END | disposition home or self-care (01) ==
LOC: MTLAB 10:57
PROVIDERS: PCP Family Medicine; Referring Provider Internal Medicine Nephrology; Visit Provider Internal Medicine Nephrology
DX: N17.9 Acute kidney failure, unspecified (principal)
CPT/HCPCS: 36415; 80069

== ENCOUNTER → 2024-04-15 | Outpatient (CLI) | payer BC, SELFPAY ==
[2024-04-15 11:01] LABS: Anion Gap 7 (5-15); BUN 21 mg/dL (7-18); BUN/Creat Ratio 19.3 RATIO (10-20); Calcium,Total 9.9 mg/dL (8.5-10.1); Chloride 108 mmol/L (98-107); Cholesterol 179 mg/dL (200); Creatinine, Serum 1.09 mg/dL (0.55-1.02); EST Glomerular Filtration Rate 54 mL/min (>60); Est Glom Filt Rate - Afr Amer 65 mL/min (>60); Glucose 92 mg/dL (74-106); High Density Lipoprotein 85 mg/dL; Potassium 4.9 mmol/L (3.5-5.1); Sodium Level 137 mmol/L (136-145); T4 Free Direct 0.89 ng/dL (0.76-1.46); Thyroid Stim Hormone (TSH) 0.289 uIU/mL (0.358-3.740); Triglycerides 155 mg/dL; Very Low Density Lipoprotein 31 mg/dL (5-40)
== END | disposition home or self-care (01) ==
LOC: MFPLAB 08:31
PROVIDERS: PCP Family Medicine; Referring Provider Family Medicine; Visit Provider Family Medicine
DX: I10 Essential (primary) hypertension (principal); E03.9 Hypothyroidism, unspecified
CPT/HCPCS: 36415; 80048; 80061; 84439; 84443; 84481

== ENCOUNTER → 2024-07-14 | Outpatient (CLI) | payer BC, SELFPAY ==
[2024-07-14 16:04] LABS: Free T3 2.2 pg/mL (2.18-3.98); Thyroid Stim Hormone (TSH) 0.097 uIU/mL (0.300-4.200)
== END | disposition home or self-care (01) ==
LOC: MFPLAB 11:13
PROVIDERS: PCP Family Medicine; Referring Provider Family Medicine; Visit Provider Family Medicine
DX: E03.9 Hypothyroidism, unspecified (principal)
CPT/HCPCS: 36415; 84439; 84443; 84481

== ENCOUNTER → 2024-08-02 | Outpatient (CLI) | payer BC, SELFPAY | END | disposition home or self-care (01) | LOC: LABSPEC 15:27 | PROVIDERS: PCP Family Medicine; Referring Provider Family Medicine; Visit Provider Family Medicine | DX: Z00.00 Encounter for general adult medical examination without abnormal findings (principal) ==

== ENCOUNTER → 2024-08-02 | Outpatient (CLI) | payer BC, SELFPAY | END | disposition home or self-care (01) | PROVIDERS: PCP Family Medicine; Referring Provider Internal Medicine Rheumatology; Visit Provider Internal Medicine Rheumatology | DX: R19.5 Other fecal abnormalities (principal); N17.9 Acute kidney failure, unspecified | CPT/HCPCS: 87493 ==

== ENCOUNTER → 2024-08-30 | Outpatient (CLI) | payer BC, SELFPAY ==
[2024-08-30 18:57] LABS: Free T3 2.1 pg/mL (2.18-3.98); Thyroid Stim Hormone (TSH) 0.133 uIU/mL (0.300-4.200)
== END | disposition home or self-care (01) ==
LOC: MFPLAB 13:37
PROVIDERS: PCP Family Medicine; Referring Provider Family Medicine; Visit Provider Family Medicine
DX: E03.9 Hypothyroidism, unspecified (principal)
CPT/HCPCS: 36415; 84439; 84443; 84481

== ENCOUNTER → 2024-10-14 | Outpatient (CLI) | payer BC, SELFPAY ==
[2024-10-14 11:40] LABS: AST(SGOT) 42 U/L (<=31); Alanine Aminotransfer ALT/SGPT 22 U/L (<=34); Albumin, Serum 4.5 g/dL (3.4-4.8); Alkaline Phosphatase 172 U/L (35-104); Anion Gap 15 (5-15); BUN 21 mg/dL (4-19); BUN/Creat Ratio 19.0 RATIO (10-20); Calcium,Total 10.1 mg/dL (7.6-11.0); Carbon Dioxide 17.0 mmol/L (21.0-32.0); Chloride 105 mmol/L (98-108); Cholesterol 167 mg/dL (<=200); Free T3 2.1 pg/mL (2.18-3.98); Globulin 2.8 g/dL (2.2-4.2); Glucose 101 mg/dL (70-99); Low Density Lipoprotein Calc. 58 mg/dL; Potassium 4.9 mmol/L (3.3-5.1); Triglycerides 88 mg/dL; Very Low Density Lipoprotein 18 mg/dL (5-40); cholesterol:hdl ratio screen 1.83
== END | disposition home or self-care (01) ==
LOC: MFPLAB 08:42
PROVIDERS: PCP Family Medicine; Referring Provider Family Medicine; Visit Provider Family Medicine
DX: I10 Essential (primary) hypertension (principal); E03.9 Hypothyroidism, unspecified
CPT/HCPCS: 36415; 80053; 80061; 84439; 84443; 84481

== ENCOUNTER → 2025-01-19 | Outpatient (CLI) | payer BC, SELFPAY ==
[2025-01-19 10:36] LABS: AST(SGOT) 45 U/L (<=31); Alanine Aminotransfer ALT/SGPT 22 U/L (<=34); Albumin, Serum 4.7 g/dL (3.4-4.8); Alkaline Phosphatase 178 U/L (35-104); Anion Gap 17 (5-15); BUN 23 mg/dL (4-19); BUN/Creat Ratio 21.6 RATIO (10-20); Calcium,Total 10.2 mg/dL (7.6-11.0); Carbon Dioxide 21.7 mmol/L (21.0-32.0); Chloride 97 mmol/L (98-108); Free T3 2.3 pg/mL (2.18-3.98); Globulin 2.7 g/dL (2.2-4.2); Glucose 93 mg/dL (70-99); Potassium 4.3 mmol/L (3.3-5.1)
== END | disposition home or self-care (01) ==
LOC: MFPLAB 08:49
PROVIDERS: PCP Family Medicine; Visit Provider Family Medicine
DX: I10 Essential (primary) hypertension (principal); E03.9 Hypothyroidism, unspecified
CPT/HCPCS: 36415; 80053; 84439; 84443; 84481

== ENCOUNTER → 2025-02-02 | Outpatient (CLI) | payer BC, SELFPAY ==
--- NOTE | 2025-02-02 11:00 | LES_PTH ---
PATIENT: VAMSI MARCUS LOC: [facility] U#:[id number] AGE/SX: 64/F ROOM: RE02/02/[address]: Dr. Sterling Tinoco MD : 1960 BED: DIS: 02/02/2025 SPEC #: [id number] RECD: 02/02/25 12:25 STATUS: ANDREIA KATHERINE #: [id number] EVERARDO: 02/02/25 11:[address]: Sterling Tinoco DEPT: SURGICAL PATHOLOGY RECD BY: Travis Palumbo Tissues: A - Skin of flank, NOS Procedures: Surgery Specimen Level IV HEADER OPERATION: Right flank neoplasm skin, elliptical excision biopsy PRE-OP DIAGNOSIS: Right flank neoplasm TISSUE SUBMITTED: A- Right flank neoplasm MICROSCOPIC DIAGNOSIS A. Skin, right flank/back, neoplasm, excision: - Lichenoid verrucous keratosis (two fragments). MICROSCOPIC DESCRIPTION Slides are reviewed. GROSS DESCRIPTION A. Received in formalin labeled with the patient's name and date of . Designated as back biopsy are 2 skin shaves as follows: Skin #1: 0.7 x 0.6 x <0.1 cm varghese, friable skin shave devoid of orientation. A possible surgical margin is inked green and the specimen is trisected. Entirely submitted in cassette A1. Skin #2: 1.2 x 1.0 x 0.2 cm varghese, friable, skin shave devoid of orientation. There is a 1.0 x 0.4 cm area of granular erythema that may represent a lesion, abutting the peripheral edge. The surgical margin is inked orange. The specimen is serially sectioned and entirely submitted in cassette A2. AL 02/02/2025PT:[id number]
== END | disposition home or self-care (01) ==
LOC: LABSPEC 12:54
PROVIDERS: PCP Family Medicine; Referring Provider Family Medicine; Visit Provider Family Medicine
DX: L82.0 Inflamed seborrheic keratosis (principal)
CPT/HCPCS: 88305